=== PATIENT | female | born 1940 | race Caucasian/White ===

== ENCOUNTER 2018-04-19 15:43 | Inpatient (IN) | payer MEDICARE, OTHER ==
[2018-04-19 16:20] VITALS: BMI 24.3
[2018-04-19] MEDS ORDERED: ACETAMINOPHEN 1000 MG/100 ML VIAL (NON FORMULARY) IVPB ONE (16:43)
--- NOTE | 2018-04-19 16:54 | PDOC ---
History of Present Illness - General History Source: Patient, Correction Records, Old Records Exam Limitations: No Limitations - History of Present Illness Initial Comments: 04/19/18 17:36 The patient is a 77 year old female brought via EMS from [facility], with a significant past medical history of diabetes, dementia, AFIB, COPD , CHF, GERD, HTN, seizures, thyroid disease, depression and anxiety, who presents to the emergency department complaining of a low hemoglobin count, currently at 6.1. Upon evaluation the patient notes that she doesnt feel well and has chronic bilateral leg pain. She is also complaining of abdominal pain, which is generalized. She notes that the pain is exacerbated when her abdomen is palpated. She also notes that her leg pain is exacerbated when the legs are palpated. The patient denies chest pain, shortness of breath, headache or dizziness. Denies fever, chills, nausea, vomiting, diarrhea and constipation. Denies dysuria, frequency, urgency and hematuria. Allergies: None Past surgical history: None reported Social History: No alcohol, tobacco or drug use reported <Drew Payne - Last Filed: 04/19/18 17:35> <Shakira Tobin - Last Filed: 04/19/18 19:48> - General Chief Complaint: Blood Transfusion Stated Complaint: RULE OUT GI BLEED Time Seen by Provider: 04/19/18 16:37 Past History <Drew Payne - Last Filed: 04/19/18 17:35> - Past Medical History Cardiac Disorders: Yes (a fib) COPD: Yes CHF: Yes Diabetes: Yes GI Disorders: Yes (GERD) HTN: Yes Psychiatric Problems: Yes (anxiety,depression) Seizures: Yes Thyroid Disease: Yes - Suicide/Smoking/Psychosocial Hx Smoking History: Never smoked Have you smoked in the past 12 months: No Information on smoking cessation initiated: No Hx Alcohol Use: No Drug/Substance Use Hx: No Substance Use Type: None <Shakira Tobin - Last Filed: 04/19/18 19:48> - Past Medical History Allergies/Adverse Reactions: Allergies Allergy/AdvReac Type Severity Reaction Status Date / Time No Known Allergies Allergy Verified 04/19/18 16:18 Home Medications: Ambulatory Orders Albuterol 2.5/Ipratropium 0.5 [Duoneb -] 1 neb IH QID 09/19/16 Alprazolam [Xanax] 0.25 mg PO HS 09/19/16 Apixaban [Eliquis -] 5 mg PO BID 09/19/16 Citalopram Hydrobromide [Celexa -] 10 mg PO DAILY 09/19/16 Digoxin [Lanoxin -] 0.125 mg PO DAILY 09/19/16 Diltiazem Cd [Cardizem Cd -] 180 mg PO BID 09/19/16 Docusate Sodium [Colace -] 200 mg PO HS 09/19/16 Famotidine [Pepcid] 20 mg PO DAILY 09/19/16 Fluticasone/Salmeterol [Advair 250-50 Diskus] 1 each IH BID 09/19/16 Furosemide [Lasix -] 40 mg PO DAILY 09/19/16 Humalog Kwikpen U-100 7 unit SQ TID 09/19/16 Insulin Glargine,Hum.rec.anlog [Lantus Solostar PEN -] 20 units SQ HS 09/19/16 Insulin Lispro [Humalog Kwikpen U-100] 0 unit SQ QID 09/19/16 Lactobacillus Acidophilus [Acidophilus] 2 each PO TID 09/19/16 Methimazole [Tapazole] 2.5 mg PO DAILY 09/19/16 Metoprolol Succinate [Toprol XL -] 50 mg PO DAILY 09/19/16 Oxycodone HCl/Acetaminophen [Percocet 5-325 mg Tablet] 1 tab PO Q6H PRN Sennosides [Senna] 2 tab PO DAILY 09/19/16 Simethicone [Gas-X] 80 mg PO QID 09/19/16 Vit B Comp No.3/Folic/C/Biotin [Nephro-Joyce Rx Tablet] 1 each PO DAILY 09/19/16 Zolpidem Tartrate [Ambien] 5 mg PO HS PRN 09/19/16 levETIRAcetam [Keppra -] 250 mg PO BID 09/19/16 *Physical Exam - Vital Signs Last Vital Signs Temp Pulse Resp BP Pulse Ox 98.1 F 74 20 109/64 99 04/19/18 16:18 04/19/18 16:18 04/19/18 16:18 04/19/18 16:18 04/19/18 17:05 - Physical Exam Comments: 04/19/18 17:36 Constitutional: Awake, alert, oriented. No acute distress. Head: Normocephalic. Atraumatic Eyes: PERRL. EOMI. Conjunctivae are not pale. ENT: Mucous membranes are moist and intact. Posterior pharynx without exudates or erythema. Uvula midline. Neck: Supple. Full ROM. No lymphadenopathy. Cardiovascular: (+) Systolic ejection murmur, irregularly irregular. S1, S2 regular. Distal pulses are 2+ and symmetric. Pulmonary/Chest: No evidence of respiratory distress. Clear to auscultation bilaterally No wheezing, rales or rhonchi. Abdominal: Soft and non-distended. There is no tenderness. No rebound, guarding or rigidity. No organomegaly. No palpable masses. Good bowel sounds. Back: No CVA tenderness. Musculoskeletal: No edema. No cyanosis. No clubbing. Full range of motion in all extremities. Nocalf tenderness. Radial/pedal pulses are intact and 2+ bilaterally Skin: (+) Chronic venous stasis changes lower extremities bilaterally. Skin is warm and dry. No petechiae. No purpura. Neurological: Alert and oriented to person, place, and time. Cranial nerves II -XII are grossly intact. Normal speech. Strength is grossly symmetric. No sensory deficits. Psychiatric: Good eye contact. Normal interaction, affect and behavior. Rectal exam: (+) Black Tarry Stools <Drew Payne - Last Filed: 04/19/18 17:35> - Vital Signs Last Vital Signs Temp Pulse Resp BP Pulse Ox 98.1 F 74 20 109/64 100 04/19/18 16:18 04/19/18 16:18 04/19/18 16:18 04/19/18 16:18 04/19/18 16:18 <Shakira Tobin - Last Filed: 04/19/18 19:48> Heart Score/ECG Review - [place] Comment: 04/19/18 19:48 afib at 95, nl axis, t wave flattening, t wave inversions III, avf <Shakira Tobin - Last Filed: 04/19/18 19:48> ED Treatment Course - LABORATORY CBC & Chemistry Diagram: 04/19/18 17:10 04/19/18 17:10 - Medications Given in the ED: ED Medications Discontinued Medications Generic Name Dose Route Start Last Admin Trade Name Aaron PRN Reason Stop Dose Admin Acetaminophen 1,000 mg 04/19/18 16:43 04/19/18 17:25 Ofirmev Injection - IVPB 04/19/18 16:44 1,000 mg ONCE ONE Administration <Drew Payne - Last Filed: 04/19/18 17:35> - LABORATORY CBC & Chemistry Diagram: 04/19/18 17:10 04/19/18 18:15 - RADIOLOGY Radiology Studies Ordered: Category Date Time Status CHEST X-RAY PORTABLE* [RAD] Stat Radiology 04/19/18 16:41 Ordered <Shakira Tobin - Last Filed: 04/19/18 19:48> Medical Decision Making - Critical Care Time Total Critical Care Time (minutes): 30 Critical Care Statement: The care of this patient involved high complexity decision making to prevent further life threatening deterioration of the patient 's condition and/or to evaluate & treat vital organ system(s) failure or risk of failure. 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 Germain 04/19/18 17:24 black tarry stool on rectal exam 04/19/18 18:15 heme + stool concern for GI bleed on elaquis -will transfuse case discussed with SYMPHONY - covering Joshua gonzalez - who accepts pt to TELE inpt admission -seen in consult by Dr. Flores in the past will place GI consult <Shakira Tobin - Last Filed: 04/19/18 19:48> *DC/Admit/Observation/Transfer <Drew Payne - Last Filed: 04/19/18 17:35> - Discharge Dispostion Decision to Admit order: Yes - Attestations Physician Attestion: 04/19/18 18:16 I, Dr. Shakira Tobin, DO, attest that this document has been prepared under my direction and personally reviewed by me in its entirety. I further attest, that it accurately reflects all work, treatment, procedures and medical decision -making performed by me. <Shakira Tobin - Last Filed: 04/19/18 19:48> Diagnosis at time of Disposition: GI bleed, Symptomatic anemia - Discharge Dispostion Condition at time of disposition: Guarded
[2018-04-19] MEDS ORDERED: ACETAMINOPHEN INJECTION 100 ML IVPB ONE (17:20)
[2018-04-19] MEDS ORDERED: PANTOPRAZOLE SODIUM 40 MG VIAL IVPUSH ONE (17:23)
[2018-04-19 17:29] LABS: BASO % 0.4 % (0-2.0); EOS % 3.1 % (0-4.5); HEMATOCRIT 20.9 % (32.4-45.2); LYMPH % 12.7 % (8-40); MCH 29.7 pg (25.7-33.7); MCHC 32.2 g/dl (32.0-36.0); MEAN CELL VOLUME 92.3 fl (80-96); MEAN PLT VOLUME 6.4 fl (7.5-11.1); MONO % 12.8 % (3.8-10.2); PLATELET COUNT 432 K/MM3 (134-434); RBC 2.26 M/mm3 (3.60-5.2); RDW 14.9 % (11.6-15.6)
[2018-04-19 17:42] LABS: HEMOGLOBIN 6.7 GM/dL (10.7-15.3)
[2018-04-19 17:52] LABS: INR 1.42 (0.82-1.09); PROTHROMBIN TIME (PATIENT) 16.1 SEC (9.7-13.0)
[2018-04-19 17:56] LABS: ACTIVATED PTT 27.3 SECONDS (25.2-36.5)
[2018-04-19] MEDS ORDERED: SODIUM CHLORIDE 0.9% 1000 ML INFUS.BAG IV ONE (18:25)
[2018-04-19 18:56] LABS: ALBUMIN 2.8 g/dl (3.4-5.0); ANION GAP 6 (8-16); BLOOD UREA NITROGEN 34 mg/dL (7-18); CHLORIDE 97 mmol/L (98-107); CO2 33 mmol/L (21-32); GLUCOSE,RANDOM 108 mg/dL (74-106); LIPASE 92 U/L (73-393); MAGNESIUM 2.7 mg/dL (1.8-2.4); POTASSIUM 4.8 mmol/L (3.5-5.1); SODIUM 136 mmol/L (136-145)
[2018-04-19 19:03] LABS: ALK PHOS 51 U/L (45-117); BILIRUBIN,TOTAL 0.4 mg/dL (0.2-1.0); SGOT/AST 13 U/L (15-37); SGPT/ALT 18 U/L (12-78)
[2018-04-19] MEDS ORDERED: morphine CARPU-JECT 2 MG/1 ML DISP.SYRIN IVPUSH ONE (19:03)
[2018-04-19] MEDS ORDERED: MORPHINE SULFATE 2 MG/ML VIAL ONE (19:21)
[2018-04-19] MEDS ORDERED: PANTOPRAZOLE SODIUM 40 MG/100 ML BAG IVPB ONE (20:39)
[2018-04-19 20:47] LABS: URINE APPEARANCE TURBID; URINE BILIRUBIN NEGATIVE (<2.0 mg/dL); URINE COLOR YELLOW; URINE GLUCOSE (UA) NEGATIVE (NEGATIVE); URINE KETONE NEGATIVE (NEGATIVE); URINE NITRITE NEGATIVE (NEGATIVE); URINE PROTEIN NEGATIVE (NEGATIVE); URINE UROBILINOGEN NEGATIVE mg/dL (0.2-1.0)
[2018-04-19 20:53] LABS: URINE LEUK ESTERASE 3+ (NEGATIVE)
[2018-04-19 20:56] LABS: URINE BACTERIA RARE /hpf (NONE SEEN); URINE MUCUS RARE; YEAST RARE
[2018-04-19] MEDS ORDERED: METOPROLOL TARTRATE 5 MG/5 ML VIAL IVPUSH PRN (21:21)
--- NOTE | 2018-04-19 21:22 | HP ---
CHIEF COMPLAINT: low H/H PCP: Aaron Oswald HISTORY OF PRESENT ILLNESS: This is a 77 year old female with a past medical history significant for afib on eliquis who presented to the ED with low Hgb from her NH. Pt with chronic complaint of abdominal, back and leg pain. Denies any new complaints or issues. ER course was notable for: (1) Hgb 6.7 (2) stool guaiac positive Recent Travel: pt denies PAST MEDICAL HISTORY: Afib on eliquis, CHF, COPD, DM, thyroid, GERD, seizure d/o, dementia, L breast CA PAST SURGICAL HISTORY: cholecystectomy L breast Mastectomy Social History: Smoking: pt denies, quit in her 50s Alcohol: pt denies Drugs: pt denies Family History: unk Allergies No Known Allergies Allergy (Verified 04/19/18 16:18) HOME MEDICATIONS: 3 Medication Instructions Recorded Albuterol 2.5/Ipratropium 0.5 1 neb IH QID 09/19/16 [Duoneb -] Alprazolam [Xanax] 0.25 mg PO HS 09/19/16 Apixaban [Eliquis -] 5 mg PO BID 09/19/16 Citalopram Hydrobromide [Celexa -] 10 mg PO DAILY 09/19/16 Digoxin [Lanoxin -] 0.125 mg PO DAILY 09/19/16 Diltiazem Cd [Cardizem Cd -] 180 mg PO BID 09/19/16 Docusate Sodium [Colace -] 300 mg PO HS 09/19/16 Famotidine [Pepcid] 20 mg PO DAILY 09/19/16 Insulin Glargine,Hum.rec.anlog 5 units SQ HS 09/19/16 [Lantus Solostar PEN -] Lactobacillus Acidophilus 2 each PO TID 09/19/16 [Acidophilus] Methimazole [Tapazole] 2.5 mg PO DAILY 09/19/16 Sennosides [Senna] 2 tab PO DAILY 09/19/16 Simethicone [Gas-X] 80 mg PO QID PRN 09/19/16 Vit B Comp No.3/Folic/C/Biotin 1 each PO DAILY 09/19/16 [Nephro-Joyce Rx Tablet] levETIRAcetam [Keppra -] 250 mg PO BID 09/19/16 Anastrozole [Arimidex -] 1 mg PO DAILY 04/19/18 Ascorbate Calcium [Vitamin C] 500 mg PO DAILY 04/19/18 Atorvastatin Ca [Lipitor] 10 mg PO HS 04/19/18 Ferrous Sulfate 325 mg PO TID 04/19/18 Melatonin 5 mg PO HS 04/19/18 Metoprolol Tartrate 25 mg PO TID 04/19/18 Polyethylene Glycol 3350 [Miralax 17 gm PO DAILY 04/19/18 (For Bowel Prep) -] REVIEW OF SYSTEMS CONSTITUTIONAL: Absent: fever, chills, diaphoresis, generalized weakness, malaise, loss of appetite, weight change HEENT: Absent: rhinorrhea, nasal congestion, throat pain, throat swelling, difficulty swallowing, mouth swelling, ear pain, eye pain, visual changes CARDIOVASCULAR: Absent: chest pain, syncope, palpitations, irregular heart rate, lightheadedness , peripheral edema RESPIRATORY: Absent: cough, shortness of breath, dyspnea with exertion, orthopnea, wheezing, stridor, hemoptysis GASTROINTESTINAL: Present: abdominal pain Absent: abdominal distension, nausea, vomiting, diarrhea, constipation, melena, hematochezia GENITOURINARY: Absent: dysuria, frequency, urgency, hesitancy, hematuria, flank pain, genital pain MUSCULOSKELETAL: Present: Leg pain Absent: myalgia, arthralgia, joint swelling, back pain, neck pain SKIN: Absent: rash, itching, pallor HEMATOLOGIC/IMMUNOLOGIC: Absent: easy bleeding, easy bruising, lymphadenopathy, frequent infections ENDOCRINE: Absent: unexplained weight gain, unexplained weight loss, heat intolerance, cold intolerance NEUROLOGIC: Absent: headache, focal weakness or paresthesias, dizziness, unsteady gait, seizure, mental status changes, bladder or bowel incontinence PSYCHIATRIC: Absent: anxiety, depression, suicidal or homicidal ideation, hallucinations. PHYSICAL EXAMINATION Vital Signs - 24 hr 3 04/19/18 04/19/18 04/19/18 16:18 17:05 20:52 21:09 Temperature 98.1 F Pulse Rate 74 Pulse Rate [ 100 H Apical] Respiratory 20 18 Rate Blood Pressure 109/64 Blood Pressure 121/85 [Right Arm] O2 Sat by Pulse 100 99 99 100 Oximetry (%) GENERAL: Awake, alert, and fully oriented, in no acute distress. HEAD: Normal with no signs of trauma. EYES: Pupils equal, round and reactive to light, extraocular movements intact, sclera anicteric, conjunctiva pale. No lid lag. EARS, NOSE, THROAT: Ears normal, nares patent, oropharynx clear without exudates. Moist mucous membranes. NECK: Normal range of motion, supple without lymphadenopathy, JVD, or masses. LUNGS: Breath sounds equal, clear to auscultation bilaterally. No wheezes, and no crackles. No accessory muscle use. HEART: Regular rate and rhythm, normal S1 and S2 without rub or gallop. + murmur ABDOMEN: Soft, tender all quadrants on deep palpation, not distended, normoactive bowel sounds, no guarding, no rebound, no masses. No hepatomegaly or splenomegaly. MUSCULOSKELETAL: Normal range of motion at all joints. No bony deformities or tenderness. No CVA tenderness. UPPER EXTREMITIES: 2+ pulses, warm, well-perfused. No cyanosis. No clubbing. No peripheral edema. LOWER EXTREMITIES: 2+ pulses, warm, well-perfused. No calf tenderness. tr peripheral edema. chronic vascular changes b/l LE: darkened skin, hypertrophic, flaky skin NEUROLOGICAL: Cranial nerves II-XII intact. Normal speech. Normal gait. PSYCHIATRIC: Cooperative. Good eye contact. Appropriate mood and affect. SKIN: Warm, dry, normal turgor, no rashes or lesions noted, normal capillary refill. Laboratory Results - last 24 hr 3 04/19/18 04/19/18 04/19/18 17:10 17:10 17:10 WBC 6.0 RBC 2.26 L D Hgb 6.7 L* D Hct 20.9 L D MCV 92.3 MCH 29.7 MCHC 32.2 RDW 14.9 Plt Count 432 D MPV 6.4 L Absolute Neuts (auto) 4.2 Neutrophils % 71.0 D Lymphocytes % 12.7 D Monocytes % 12.8 H D Eosinophils % 3.1 D Basophils % 0.4 Nucleated RBC % 0 PT with INR 16.10 H INR 1.42 H PTT (Actin FS) 27.3 Sodium Potassium Chloride Carbon Dioxide Anion Gap BUN Creatinine Creat Clearance w eGFR Random Glucose Lactic Acid 0.7 Calcium Magnesium Total Bilirubin AST ALT Alkaline Phosphatase Creatine Kinase Troponin I B-Natriuretic Peptide Total Protein Albumin Lipase Urine Color Urine Appearance Urine pH Ur Specific [place] Urine Protein Urine Glucose (UA) Urine Ketones Urine Blood Urine Nitrite Urine Bilirubin Urine Urobilinogen Ur Leukocyte Esterase Urine WBC (Auto) Urine RBC (Auto) Urine Bacteria Urine Mucus Urine Yeast Stool Occult Blood Digoxin 1.94 Blood Type O POSITIVE Antibody Screen Negative Crossmatch See Detail 3 04/19/18 04/19/18 04/19/18 04/19/18 18:10 18:15 18:15 20:30 WBC RBC Hgb Hct MCV MCH MCHC RDW Plt Count MPV Absolute Neuts (auto) Neutrophils % Lymphocytes % Monocytes % Eosinophils % Basophils % Nucleated RBC % PT with INR INR PTT (Actin FS) Sodium 136 Potassium 4.8 Chloride 97 L Carbon Dioxide 33 H Anion Gap 6 L BUN 34 H Creatinine 1.0 Creat Clearance w eGFR 53.91 Random Glucose 108 H Lactic Acid Calcium 8.0 L Magnesium 2.7 H Total Bilirubin 0.4 D AST 13 L ALT 18 Alkaline Phosphatase 51 Creatine Kinase 19 L Troponin I < 0.02 B-Natriuretic Peptide 4069.18 H Total Protein 6.0 L Albumin 2.8 L Lipase 92 Urine Color Urine Appearance Urine pH Ur Specific [place] Urine Protein Urine Glucose (UA) Urine Ketones Urine Blood Urine Nitrite Urine Bilirubin Urine Urobilinogen Ur Leukocyte Esterase Urine WBC (Auto) Urine RBC (Auto) Urine Bacteria Urine Mucus Urine Yeast Stool Occult Blood Positive Positive Digoxin Blood Type Antibody Screen Crossmatch 3 Urine Color Yellow 04/19/18 18:20 Urine Appearance Turbid 04/19/18 18:20 Urine pH 5.0 (5.0-8.0) 04/19/18 18:20 Ur Specific [place] 1.011 (1.001-1.035) 04/19/18 18:20 Urine Protein Negative (NEGATIVE) 04/19/18 18:20 Urine Glucose (UA) Negative (NEGATIVE) 04/19/18 18:20 Urine Ketones Negative (NEGATIVE) 04/19/18 18:20 Urine Blood 1+ (NEGATIVE) H 04/19/18 18:20 Urine Nitrite Negative (NEGATIVE) 04/19/18 18:20 Urine Bilirubin Negative (<2.0 mg/dL) 04/19/18 18:20 Ur Leukocyte Esterase 3+ (NEGATIVE) H D 04/19/18 18:20 Urine WBC (Auto) 931 Urine RBC (Auto) 10 Urine Bacteria Rare /hpf (NONE SEEN) 04/19/18 18:20 Urine Mucus Rare 04/19/18 18:20 Urine Yeast Rare ECG Atrial fibrillation vent rate 79, QTC [address]/T wave abnormality prolonged QT Radiology Reports CXR portable Since 09/26/2016, again noted is a large heart with sclerotic unfolded aorta, weak inspiration and some congestive changes. There may be some atelectasis at the right base. The bones and soft tissues appear intact. Follow-up recommended. Reported By: Fadi Nye MD 04/19/18 3055 ASSESSMENT/PLAN: 77yF with PMH Afib on eliquis, CHF, COPD, DM, thyroid, GERD, seizure d/o, dementia, L breast CA presented to the ED from [facility] for low H/ H. GI bleed/anemia - 2uPRBC - GI consult - hold eliquis - protonix 40mg BID - NPO Afib - hold eliquis due to GI bleed - cardiology consult - po meds on hold due to GI bleed, metoprolol 5mg IVP q4h PRN for HR >100 - can add IV diltiazem if HR not responding to metoprolol HTN - po meds on hold - metoprolol 5mg IVP q4h PRN for SBP > 140 - can add IV diltiazem if BP not responding HLD - po meds on hold, resume lipitor when cleared for po UTI - ceftriaxone 1g HS - follow culture results COPD - cont duoneb and advair hyperthyroid - resume tapazole when cleared for po DVT PPX - AC contraindicated in active bleeding FEN - hold IVF, will be receiving volume with blood - bmp in am - npo Dispo: Pt currently requires further inpatient management of her emergent condition Hospitalist Screening - Colonoscopy Questionnaire Colonoscopy Questionnaire: Colonoscopy Questionnaire
[2018-04-19] MEDS: ALBUTEROL SO4 2.5/IPRATROPIUM 0.5 INH SOL 3 ML VIAL.NEB. NEB SCH (21:45)
[2018-04-19] MEDS ORDERED: INSULIN SLIDING SCALE (NOVOLOG) 1 VIAL SQ SCH (22:00)
[2018-04-19] MEDS: BUDESONIDE/FORMETEROL FUMARATE 80/4.5 mcg INHALER IH SCH (22:18)
[2018-04-19] MEDS ORDERED: cefTRIAXone SODIUM 1 GM VIAL ONE (22:53)
[2018-04-19] MEDS ORDERED: DEXTROSE 5%-WATER - 50 ML IVPB ONE (22:54)
[2018-04-19] MEDS: CEFTRIAXONE 1 GM in DEXTROSE 5%-WATER - 50 ML IVPB SCH (23:00)
[2018-04-20] MEDS ORDERED: morphine SULFATE 4 MG/ML VIAL IVPUSH ONE (03:53)
[2018-04-20 06:15] LABS: BASO % 0.6 % (0-2.0); EOS % 3.1 % (0-4.5); HEMATOCRIT 25.6 % (32.4-45.2); HEMOGLOBIN 8.3 GM/dL (10.7-15.3); LYMPH % 8.8 % (8-40); MCH 29.8 pg (25.7-33.7); MCHC 32.5 g/dl (32.0-36.0); MEAN CELL VOLUME 91.5 fl (80-96); MEAN PLT VOLUME 5.9 fl (7.5-11.1); NEUT % 77.5 % (42.8-82.8); PLATELET COUNT 365 K/MM3 (134-434); RBC 2.79 M/mm3 (3.60-5.2); RDW 14.7 % (11.6-15.6); WHITE BLOOD COUNT 6.5 K/mm3 (4.0-10.0)
[2018-04-20] MEDS: INSULIN SLIDING SCALE (NOVOLOG) 1 VIAL SQ SCH ×3 (06:18→18:28)
[2018-04-20 06:46] LABS: ANION GAP 3 (8-16); BLOOD UREA NITROGEN 31 mg/dL (7-18); CALCIUM 8.4 mg/dL (8.5-10.1); CHLORIDE 99 mmol/L (98-107); CO2 35 mmol/L (21-32); CREATININE 0.9 mg/dL (0.55-1.02); GLUCOSE,RANDOM 121 mg/dL (74-106); MAGNESIUM 2.8 mg/dL (1.8-2.4); SODIUM 137 mmol/L (136-145)
[2018-04-20] MEDS: ALBUTEROL SO4 2.5/IPRATROPIUM 0.5 INH SOL 3 ML VIAL.NEB. NEB SCH ×4 (07:44→20:21)
--- NOTE | 2018-04-20 09:48 | PN ---
Progress Note, Physician Chief Complaint: Pt lying in bed in no acute distress. Reports "it hurts everywhere". "Not feeling well", unable to further explain. Otherwise, denies any chest pain, sob , n/v/d - Current Medication List Current Medications: Active Medications Albuterol/Ipratropium (Duoneb -) 1 amp NEB RQID [facility] Last Admin: 04/20/18 07:44 Dose: 1 amp Budesonide/Formoterol Fumarate (Symbicort 80/4.5mcg -) 2 puff IH BID [facility] Last Admin: 04/19/18 22:18 Dose: 2 puff Ceftriaxone Sodium 1 gm/ (Dextrose) 50 mls @ 100 mls/hr IVPB HS [facility]; Protocol Last Admin: 04/19/18 23:00 Dose: 100 mls/hr Insulin Aspart (Novolog Vial Sliding Scale -) 1 vial SQ HS [facility]; Protocol Last Admin: 04/19/18 22:17 Dose: Not Given Insulin Aspart (Novolog Vial Sliding Scale -) 1 vial SQ TIDAC [facility]; Protocol Last Admin: 04/20/18 06:18 Dose: Not Given Metoprolol Tartrate (Lopressor Injection -) 5 mg IVPUSH Q4H PRN PRN Reason: HYPERTENSION Pantoprazole Sodium (Protonix Iv) 40 mg IVPUSH BID [facility] - Objective Vital Signs: Vital Signs Temperature 98.1 F 04/20/18 09:00 Pulse Rate 102 H 04/20/18 09:00 Respiratory Rate 22 04/20/18 09:00 Blood Pressure 144/77 04/20/18 09:00 O2 Sat by Pulse Oximetry (%) 100 04/20/18 09:00 Constitutional: Yes: Well Nourished, No Distress, Anxious Cardiovascular: Yes: Pulse Irregular, Murmur Respiratory: Yes: Regular, CTA Bilaterally, On Nasal O2. No: Accessory Muscle Use, SOB, Tachypnea, Wheezes Gastrointestinal: Yes: Normal Bowel Sounds, Soft, Abdomen, Obese, Melena. No: Distention, Tenderness Genitourinary: Yes: Incontinence Extremities: Yes: Other (b/l le hyperpigmentation) Edema: No Integumentary: Yes: Venous Stasis Changes (b/l LE's) Neurological: Yes: Alert, Oriented Psychiatric: Yes: Alert, Oriented Labs: CBC, BMP 04/20/18 05:30 04/20/18 05:30 INR, PTT INR 1.42 (0.82-1.09) H 04/19/18 17:10 Problem List - Problems (1) Acute blood loss anemia Assessment/Plan: acute on chronic, vitals stable secondary to possible gib hg/hct improved s/p 2units prbcs pt has chronic iron def anemia eliquis held heme-occult positive monitor h/h Code(s): D62 - ACUTE POSTHEMORRHAGIC ANEMIA (2) GI bleed Assessment/Plan: +melena at admission, heme-occult positive case discussed with GI, initially pt refused egd/colonoscopy however pt does not have full capacity to make medical decisions and therefore has a HCP Ze. I spoke with HCP and the pt, who now agrees for gi procedure to identify the source of bleeding. GI informed protonix bid clear liquids cardiology consult appreciated monitor Code(s): K92.2 - GASTROINTESTINAL HEMORRHAGE, UNSPECIFIED Qualifiers: GI bleed type/associated pathology: melena Qualified Code(s): K92.1 - Melena (3) UTI (urinary tract infection) Assessment/Plan: UA+, UC pending ceftriaxone 2/5 monitor Code(s): N39.0 - URINARY TRACT INFECTION, SITE NOT SPECIFIED Qualifiers: Urinary tract infection type: acute cystitis Hematuria presence: without hematuria Qualified Code(s): N30.00 - Acute cystitis without hematuria (4) Atrial fibrillation Assessment/Plan: chronic on eliquis/metoprolol/cardizem hold eliquis in the setting of acute gib chads(2) score 4: 8.5% risk of stroke without ac cardiology consult pending Code(s): I48.91 - UNSPECIFIED ATRIAL FIBRILLATION Qualifiers: Atrial fibrillation type: chronic Qualified Code(s): I48.2 - Chronic atrial fibrillation (5) CHF (congestive heart failure) Assessment/Plan: chronic, diastolic last echo 2015, preserved ef appear euvolemic cardiology consult pending Code(s): I50.9 - HEART FAILURE, UNSPECIFIED (6) Hyperthyroidism Assessment/Plan: tsh wnl continue tapazole Code(s): E05.90 - THYROTOXICOSIS, UNSP WITHOUT THYROTOXIC CRISIS OR STORM (7) Diabetes Assessment/Plan: chronic continue sliding scale levemir hs bgm will monitor Code(s): E11.9 - TYPE 2 DIABETES MELLITUS WITHOUT COMPLICATIONS Qualifiers: Diabetes mellitus type: type 2 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 mellitus management and budget analyst insulin use: with shelter use Diabetes mellitus complication status: with neurologic complications Diabetes mellitus complication detail: with polyneuropathy Qualified Code(s): E11.42 - Type 2 diabetes mellitus with diabetic polyneuropathy; Z79.4 - carry all driver (current) use of insulin (8) Anxiety Assessment/Plan: controlled xanax prn Code(s): F41.9 - ANXIETY DISORDER, UNSPECIFIED (9) HTN (hypertension) Assessment/Plan: controlled continue home meds cardiology following Code(s): I10 - ESSENTIAL (PRIMARY) HYPERTENSION Qualifiers: Hypertension type: essential hypertension Qualified Code(s): I10 - Essential (primary) hypertension (10) Hyperlipidemia Assessment/Plan: chronic continue statin Code(s): E78.5 - HYPERLIPIDEMIA, UNSPECIFIED (11) GERD (gastroesophageal reflux disease) Assessment/Plan: chronic protonix while in pt Code(s): K21.9 - GASTRO-ESOPHAGEAL REFLUX DISEASE WITHOUT ESOPHAGITIS (12) COPD (chronic obstructive pulmonary disease) Assessment/Plan: stable O2 prn duoneb Code(s): J44.9 - CHRONIC OBSTRUCTIVE PULMONARY DISEASE, UNSPECIFIED (13) History of seizure Assessment/Plan: chronic continue keppra seizure precautions Code(s): Z87.898 - PERSONAL HISTORY OF OTHER SPECIFIED CONDITIONS Assessment/Plan Discussed with HCP Ze and the pt at bedside regarding plan of care for pt. Pt and HCP agrees to EGD/colonoscopy. GI informed of pt's and HCP wishes to proceed with egd/colonoscopy. Risks and benefits of being on AC and not being on AC such as risk of bleeding/ risk of stroke 8.5% explained to HCP as well. HCP reports understanding.
[2018-04-20] MEDS ORDERED: PATIENT'S OWN MEDICATION (NON-FORMULARY) (Lactobacillus Acidophilus [Acidophilus] 1 EACH) PO SCH (10:00)
[2018-04-20] MEDS ORDERED: PANTOPRAZOLE SODIUM 40 MG VIAL IVPUSH SCH (10:00)
[2018-04-20] MEDS: CITALOPRAM HYDROBROMIDE 10 MG TABLET (FP) PO SCH ×2 (10:27→18:27)
[2018-04-20] MEDS: DIGOXIN 0.125 MG TABLET (FP) PO SCH ×2 (10:28→18:27)
[2018-04-20] MEDS: METHIMAZOLE 5 MG TABLET (FP) PO SCH ×2 (10:29→18:27)
[2018-04-20] MEDS: BUDESONIDE/FORMETEROL FUMARATE 80/4.5 mcg INHALER IH SCH ×2 (10:29→22:18)
[2018-04-20] MEDS: ACETAMINOPHEN 325 MG TABLET (FP) PO PRN ×2 (10:29→22:18)
--- NOTE | 2018-04-20 11:01 | CON.GI ---
Consult Consult Specialty:: GI: Dr. Jones covering for Dr. Cheney Referred by:: Dr. Benitez Reason for Consultation:: "GI Bleed" - History of Present Illness Chief Complaint: "Everything hurts" History of Present Illness: 77F admitted through [facility] ER from [place] for evaluation of anemia. In review of the [facility] system Ms. Rausch has a baseline anemia and it was found to be worse. It is unclear if this has ever been evaluated from a hematologic or GI standpoint. No overt bleeding has been described. She complains of constipation. She believes that she may have had a colonoscopy in the past but is uncertain. There is no family history of colorectal cancer. She received 1 U PRBC after which her Hgb was 8.3 from 6.7. She just finished a 2nd unit of PRBC. She states that everything hurts. 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 Cardio/Vascular: Yes: AFIB Pulmonary: Yes: COPD ...: No Heme/Onc: Yes: Anemia, Cancer (Breast) Endocrine: Yes: Diabetes Mellitus, Hyperthyroidism - Past Surgical History Past Surgical History: Yes: Cholecystectomy Additional Surgical History: "eye surgeries" - Alcohol/Substance Use Hx Alcohol Use: No History of Substance Use: reports: None - Smoking History Smoking history: Former smoker Have you smoked in the past 12 months: No - Social History Usual Living Arrangement: Intermediate ADL: Support Services [facility] of : [facility] History of Recent Travel: No Home Medications - Allergies Allergies/Adverse Reactions: Allergies Allergy/AdvReac Type Severity Reaction Status Date / Time No Known Allergies Allergy Verified 04/19/18 16:18 - Home Medications Home Medications: Ambulatory Orders Albuterol 2.5/Ipratropium 0.5 [Duoneb -] 1 neb IH QID 09/19/16 Alprazolam [Xanax] 0.25 mg PO HS 09/19/16 Apixaban [Eliquis -] 5 mg PO BID 09/19/16 Citalopram Hydrobromide [Celexa -] 10 mg PO DAILY 09/19/16 Digoxin [Lanoxin -] 0.125 mg PO DAILY 09/19/16 Diltiazem Cd [Cardizem Cd -] 180 mg PO BID 09/19/16 Docusate Sodium [Colace -] 300 mg PO HS 09/19/16 Famotidine [Pepcid] 20 mg PO DAILY 09/19/16 Insulin Glargine,Hum.rec.anlog [Lantus Solostar PEN -] 5 units SQ HS 09/19/16 Lactobacillus Acidophilus [Acidophilus] 2 each PO TID 09/19/16 Methimazole [Tapazole] 2.5 mg PO DAILY 09/19/16 Sennosides [Senna] 2 tab PO DAILY 09/19/16 Simethicone [Gas-X] 80 mg PO QID PRN 09/19/16 Vit B Comp No.3/Folic/C/Biotin [Nephro-Joyce Rx Tablet] 1 each PO DAILY 09/19/16 levETIRAcetam [Keppra -] 250 mg PO BID 09/19/16 Anastrozole [Arimidex -] 1 mg PO DAILY 04/19/18 Ascorbate Calcium [Vitamin C] 500 mg PO DAILY 04/19/18 Atorvastatin Ca [Lipitor] 10 mg PO HS 04/19/18 Ferrous Sulfate 325 mg PO TID 04/19/18 Melatonin 5 mg PO HS 04/19/18 Metoprolol Tartrate 25 mg PO TID 04/19/18 Polyethylene Glycol 3350 [Miralax (For Bowel Prep) -] 17 gm PO DAILY 04/19/18 Family Disease History - Family Disease History Other Family History: No family history of colorectal cancer or other GI malignancy Review of Systems - Review of Systems Constitutional: denies: Chills Cardiovascular: denies: Chest Pain Respiratory: reports: SOB Gastrointestinal: reports: Abdominal Pain, Constipation. denies: Melena, Rectal Bleeding Musculoskeletal: reports: Back Pain, Extremity Pain Physical Exam-GI Vital Signs: Vital Signs Temperature 98.1 F 04/20/18 09:00 Pulse Rate 102 H 04/20/18 09:00 Respiratory Rate 22 04/20/18 09:00 Blood Pressure 144/77 04/20/18 09:00 O2 Sat by Pulse Oximetry (%) 100 04/20/18 09:00 Constitutional: Yes: Other (Nervous after discussion of possible procedures) Eyes: No: Sclera Icterus Cardiovascular: Yes: Other (Regular rate, irregular rhythm) Respiratory: Yes: Diminished (At bases b/l with poor insp effort) Gastrointestinal Inspection: Yes: Scars (faint periumbilical scar). No: Distention ...Auscultate: Yes: Normoactive Bowel Sounds ...Palpate: No: Hepatomegaly, Splenomegaly, Tenderness ...Percussion: No: Tympanitic ...Rectal Exam: Yes: Other (No external lesions, copious had dark iron stained stool in rectal vault, guaiac positive. Manually disimpacted.) Edema: No (+ Chronic stasis b/l ) Labs: CBC, BMP 04/20/18 05:30 04/20/18 05:30 INR, PTT INR 1.42 (0.82-1.09) H 04/19/18 17:10 Problem List - Problems (1) Anemia Assessment/Plan: Discussed finding of anemia with Ms. Rausch as well as guaiac positive stool. I explained that to assess for source of GI blood loss, upper endoscopy and colonoscopy could be performed to exclude sources of bleeding such as PUD, bleeding blood vessels or cancer of the GI tract such as colon cancer. She stated that she does not want procedures performed. She is aware that she is on a blood thinner and that GI bleeding can be life threatening. Advise: Protonix 40mg PO daily Monitor H/H Goals of care need to be outlined with Ms. Rausch and PMD given that she does not want any interventions. Clears. If H/H stable advance Code(s): D64.9 - ANEMIA, UNSPECIFIED (2) Constipation Assessment/Plan: A rectal exam to exclude evolving rectal fecal impaction at the retirement intermittently could be useful MiraLax 17g twice daily Senokot 2 tabs nightly Recall as needed Code(s): K59.00 - CONSTIPATION, UNSPECIFIED
--- NOTE | 2018-04-20 11:53 | EKG ---
Test Reason : Blood Pressure : / mmHG Vent. Rate : 095 BPM Atrial Rate : 110 BPM P-R Int : 000 ms QRS Dur : 096 ms QT Int : 334 ms P-R-T Axes : 000 042 -81 degrees QTc Int : 419 ms ATRIAL FIBRILLATION WITH A COMPETING JUNCTIONAL PACEMAKER NONSPECIFIC ST AND T WAVE ABNORMALITY ABNORMAL ECG WHEN COMPARED WITH ECG OF 19-SEP-2016 09:34, NONSPECIFIC T WAVE ABNORMALITY HAS REPLACED INVERTED T WAVES IN LATERAL LEADS Confirmed by ALLI ELIZONDO, IQRA ([id number]) on 04/20/2018 11:53:44 AM Referred By: Confirmed By:IQRA CARSON MD
--- NOTE | 2018-04-20 13:21 | CON.CARD ---
Consult Consult Specialty:: Cardiology Referred by:: Michelle Guzman Reason for Consultation:: afib - History of Present Illness Chief Complaint: Anemia History of Present Illness: 77 year old female with a pmhx of dm, dementia, copd, chf, gerd, htn, seizure d /o, thyroid disease, and afib on apixaban [facility] with worsening anemia and Hgb 6.1. Patient with no new complaints. C/o chronic b/l leg pain and abdominal pain. No chest pain or palpitations. No sob but not active. Transfused and Hgb 8.3. No gross bleed but gauic positive as per GI. 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 Cardio/Vascular: Yes: AFIB Pulmonary: Yes: COPD ...: No Endocrine: Yes: Diabetes Mellitus, Hyperthyroidism - Past Surgical History Past Surgical History: Yes: Cholecystectomy Additional Surgical History: "eye surgeries" - Alcohol/Substance Use Hx Alcohol Use: No History of Substance Use: reports: None - Smoking History Smoking history: Former smoker Have you smoked in the past 12 months: No - Social History Usual Living Arrangement: Custodial ADL: Support Services History of Recent Travel: No Home Medications - Allergies Allergies/Adverse Reactions: Allergies Allergy/AdvReac Type Severity Reaction Status Date / Time No Known Allergies Allergy Verified 04/19/18 16:18 - Home Medications Home Medications: Ambulatory Orders Albuterol 2.5/Ipratropium 0.5 [Duoneb -] 1 neb IH QID 09/19/16 Alprazolam [Xanax] 0.25 mg PO HS 09/19/16 Apixaban [Eliquis -] 5 mg PO BID 09/19/16 Citalopram Hydrobromide [Celexa -] 10 mg PO DAILY 09/19/16 Digoxin [Lanoxin -] 0.125 mg PO DAILY 09/19/16 Diltiazem Cd [Cardizem Cd -] 180 mg PO BID 09/19/16 Docusate Sodium [Colace -] 300 mg PO HS 09/19/16 Famotidine [Pepcid] 20 mg PO DAILY 09/19/16 Insulin Glargine,Hum.rec.anlog [Lantus Solostar PEN -] 5 units SQ HS 09/19/16 Lactobacillus Acidophilus [Acidophilus] 2 each PO TID 09/19/16 Methimazole [Tapazole] 2.5 mg PO DAILY 09/19/16 Sennosides [Senna] 2 tab PO DAILY 09/19/16 Simethicone [Gas-X] 80 mg PO QID PRN 09/19/16 Vit B Comp No.3/Folic/C/Biotin [Nephro-Joyce Rx Tablet] 1 each PO DAILY 09/19/16 levETIRAcetam [Keppra -] 250 mg PO BID 09/19/16 Anastrozole [Arimidex -] 1 mg PO DAILY 04/19/18 Ascorbate Calcium [Vitamin C] 500 mg PO DAILY 04/19/18 Atorvastatin Ca [Lipitor] 10 mg PO HS 04/19/18 Ferrous Sulfate 325 mg PO TID 04/19/18 Melatonin 5 mg PO HS 04/19/18 Metoprolol Tartrate 25 mg PO TID 04/19/18 Polyethylene Glycol 3350 [Miralax (For Bowel Prep) -] 17 gm PO DAILY 04/19/18 Family Disease History - Family Disease History Other Family History: No family history of colorectal cancer or other GI malignancy Vital Signs: Vital Signs Temperature 98.1 F 04/20/18 09:00 Pulse Rate 102 H 04/20/18 09:00 Respiratory Rate 22 04/20/18 09:00 Blood Pressure 144/77 04/20/18 09:00 O2 Sat by Pulse Oximetry (%) 100 04/20/18 09:00 Constitutional: Yes: No Distress Neck: Yes: Supple Respiratory: Yes: Diminished (bases) Gastrointestinal: Yes: Soft Cardiovascular: Yes: Pulse Irregular. No: Regular Rate and Rhythm JVD: No Carotid Bruit: No PMI: Non-Displaced Heart Sounds: Yes: S1, S2 Murmur: Yes: Systolic Murmur (3/6 HSM upper sternal border) Extremities: Yes: Other (chronic b/l skin changes) Edema: No - Other Data Labs, Other Data: CBC, BMP 04/20/18 05:30 04/20/18 05:30 INR, PTT INR 1.42 (0.82-1.09) H 04/19/18 17:10 Troponin, BNP 04/19/18 04/19/18 04/19/18 17:10 18:15 18:15 Troponin I Cancelled < 0.02 B-Natriuretic Peptide 4069.18 H Troponin, BNP 04/19/18 04/19/18 04/19/18 17:10 18:15 18:15 Troponin I Cancelled < 0.02 B-Natriuretic Peptide 4069.18 H Imaging - Results Chest X-ray: Report Reviewed EKG: Image Reviewed Assessment/Plan 77 year old female with a pmhx of dm, dementia, copd, chf, gerd, htn, seizure d/ o, thyroid disease, and afib on [facility]ixaban [facility] with worsening anemia and Hgb 6.1. Patient with no new complaints. C/o chronic b/l leg pain and abdominal pain. No chest pain or palpitations. No sob but not active. Transfused and Hgb 8.3. No gross bleed but gauic positive as per GI. EKG: afib with VR 95bpm, nl axis, LVH with nonspecific T wave abnormalities 1) Afib -Chronic afib with elevated rates this morning (but nurses report she was upset this am) and rates now are relatively controlled. Would just restart her home meds: diltiazem Hold off on metoprolol to see response to diltiazem -Was on apixaban for AC. Came in with anemia Hgb 6.1 and +guaic stool. AC is on hold at this time. She has strong indication for AC for stroke prevention and discussed this with patient. Would hold AC as long as GI recommends to hold. If patient refuses any work up, than would be at increased bleeding risk for AC therapy. Please call back if needed
[2018-04-20] MEDS ORDERED: LACTOBACILLUS ACIDOPHILUS PO SCH (14:00)
--- NOTE | 2018-04-20 14:32 | PN ---
Progress Note (short form) - Note Progress Note: Asked by SABRINA Solano to comment on how long to hold A/C. I explained that giving recommendations regarding anticoagulation on GI bleed that has not been evaluated endoscopically is difficult, as there are no guidelines and the location / cause of the bleed has not been defined. I would monitor clinically , Keep on BID Protonix for 5 days followed by once daily. Risks/Benefits of continuing or stoppage of anticoagulation in setting of A. Fib with GI bleed that has not been evaluated should be discussed with patient and her HCP. Problem List - Problems (1) Anemia Code(s): D64.9 - ANEMIA, UNSPECIFIED (2) Constipation Code(s): K59.00 - CONSTIPATION, UNSPECIFIED
[2018-04-20 15:50] LABS: BASO % 0.6 % (0-2.0); EOS % 1.6 % (0-4.5); HEMATOCRIT 27.7 % (32.4-45.2); HEMOGLOBIN 9.2 GM/dL (10.7-15.3); LYMPH % 8.5 % (8-40); MCH 30.3 pg (25.7-33.7); MCHC 33.1 g/dl (32.0-36.0); MEAN CELL VOLUME 91.5 fl (80-96); MEAN PLT VOLUME 6.3 fl (7.5-11.1); MONO % 10.4 % (3.8-10.2); NEUT % 78.9 % (42.8-82.8); PLATELET COUNT 410 K/MM3 (134-434); RBC 3.02 M/mm3 (3.60-5.2); RDW 14.4 % (11.6-15.6); WHITE BLOOD COUNT 6.7 K/mm3 (4.0-10.0)
--- NOTE | 2018-04-20 17:59 | PN ---
Progress Note (short form) - Note Progress Note: Received call earlier from SABRINA Solano that Ms. Rausch had spoken to Ze, her [id number] / HCP and that they were both agreeable to having procedures performed. I called Ze Rausch, Ms. Rausch's zuqngig-vq-fwk/HCP and discussed potential plan for EGD/Colonoscopy to assess for potential source of GI bleeding. We discussed potential risks of the procedure like but not limited to bleeding, perforation requiring surgery to repair, infection and sedation medication effects all of which could be potentially life threatening. He was agreeable to the procedures. I then went back to the hospital after office hours and discussed things with Ms. Rausch. She remembered the previous conversation that she had with her [id number]. We reviewed the procedures (indications and risks as outlined above) and she was agreeable to the procedures. She is AAO x 3 on my evaluation and showed good insight into the procedures. She signed consent. Will plan for EGD tomorrow. it will be 48 hours off of eliquis at that time. If there is an obvious source of bleeding, then another discussion can be had regarding colonoscopy. I feel that given the significant fecal impaction i encountered today along with opiate analgesia use and iron therapy, bowel prepping will be duifficult and likely not achieved in one evening. Problem List - Problems (1) Anemia Code(s): D64.9 - ANEMIA, UNSPECIFIED (2) Constipation Code(s): K59.00 - CONSTIPATION, UNSPECIFIED
[2018-04-20] MEDS ORDERED: INSULIN (NOVOLOG) ASPART 100 UNITS/ML 10ML VIAL ONE (18:26)
[2018-04-20] MEDS: levETIRAcetam 250 MG TABLET (FP) PO SCH ×2 (18:27→22:17)
[2018-04-20] MEDS: POLYETHYLENE GLYCOL 3350 119 GM BTL PO SCH ×2 (18:29→22:15)
[2018-04-20] MEDS ORDERED: DEXTROSE 5%-WATER - 50 ML IVPB ONE (20:42)
[2018-04-20] MEDS ORDERED: cefTRIAXone SODIUM 1 GM VIAL ONE (20:42)
[2018-04-20] MEDS: METOPROLOL TARTRATE 25 MG TABLET (FP) PO SCH (22:14)
[2018-04-20] MEDS: SENNOSIDES 8.8 MG/5 ML BULK BOTTLE PO SCH (22:15)
[2018-04-20] MEDS: PANTOPRAZOLE 40 MG TABLET (FP) PO SCH (22:15)
[2018-04-20] MEDS: INSULIN (LEVEMIR) 100 UNITS/ML UNITS SQ SCH (22:15)
[2018-04-20] MEDS: oxyCODONE HCL 5 MG TABLET PO PRN (22:18)
[2018-04-20] MEDS: CEFTRIAXONE 1 GM in DEXTROSE 5%-WATER - 50 ML IVPB SCH (22:18)
[2018-04-21] MEDS ORDERED: DEXTROSE 5%-0.45% SALINE 1,000 ML IV SCH (00:01)
[2018-04-21] MEDS: INSULIN SLIDING SCALE (NOVOLOG) 1 VIAL SQ SCH ×3 (06:29→17:31)
[2018-04-21] MEDS: METOPROLOL TARTRATE 25 MG TABLET (FP) PO SCH ×3 (06:32→22:26)
[2018-04-21 06:38] LABS: INR 1.27 (0.82-1.09); PROTHROMBIN TIME (PATIENT) 14.3 SEC (9.7-13.0)
[2018-04-21 06:40] LABS: ACTIVATED PTT 26.1 SECONDS (25.2-36.5)
[2018-04-21 06:59] LABS: BASO % 0.6 % (0-2.0); EOS % 3.3 % (0-4.5); HEMATOCRIT 28.2 % (32.4-45.2); HEMOGLOBIN 9.5 GM/dL (10.7-15.3); LYMPH % 9.7 % (8-40); MCHC 33.8 g/dl (32.0-36.0); MEAN CELL VOLUME 91.7 fl (80-96); MEAN PLT VOLUME 6.2 fl (7.5-11.1); MONO % 11.5 % (3.8-10.2); NEUT % 74.9 % (42.8-82.8); PLATELET COUNT 364 K/MM3 (134-434); RBC 3.07 M/mm3 (3.60-5.2); RDW 14.6 % (11.6-15.6); WHITE BLOOD COUNT 6.1 K/mm3 (4.0-10.0)
[2018-04-21 07:02] LABS: CHLORIDE 99 mmol/L (98-107); POTASSIUM 4.8 mmol/L (3.5-5.1); SODIUM 138 mmol/L (136-145)
[2018-04-21 07:17] LABS: ANION GAP 8 (8-16); BLOOD UREA NITROGEN 28 mg/dL (7-18); CALCIUM 8.1 mg/dL (8.5-10.1); CO2 31 mmol/L (21-32); CREATININE 0.9 mg/dL (0.55-1.02); GLUCOSE,RANDOM 125 mg/dL (74-106); MAGNESIUM 2.6 mg/dL (1.8-2.4)
[2018-04-21] MEDS: ALBUTEROL SO4 2.5/IPRATROPIUM 0.5 INH SOL 3 ML VIAL.NEB. NEB SCH ×4 (07:39→20:59)
--- NOTE | 2018-04-21 09:42 | PN ---
Progress Note, Physician Chief Complaint: Pt lying in bed in no acute distress. says she is thirsty, aware of egd in afternoon. Otherwise, denies any chest pain, sob, n/v/d - Current Medication List Current Medications: Active Medications Acetaminophen (Tylenol -) 650 mg PO Q6H PRN PRN Reason: PAIN LEVEL 4 - 6 Last Admin: 04/20/18 22:18 Dose: 650 mg Albuterol/Ipratropium (Duoneb -) 1 amp NEB RQID [facility] Last Admin: 04/21/18 07:39 Dose: 1 amp Alprazolam (Xanax -) 0.25 mg PO HS PRN PRN Reason: ANXIETY Budesonide/Formoterol Fumarate (Symbicort 80/4.5mcg -) 2 puff IH BID [facility] Last Admin: 04/20/18 22:18 Dose: 2 puff Citalopram Hydrobromide (Celexa -) 10 mg PO DAILY [facility] Last Admin: 04/20/18 18:27 Dose: 10 mg Digoxin (Lanoxin -) 0.125 mg PO DAILY [facility] Last Admin: 04/20/18 18:27 Dose: 0.125 mg Diltiazem HCl (Cardizem Cd -) 180 mg PO BID [facility] Last Admin: 04/20/18 22:15 Dose: 180 mg Ceftriaxone Sodium 1 gm/ (Dextrose) 50 mls @ 100 mls/hr IVPB [facility]; Protocol Last Admin: 04/20/18 22:18 Dose: 100 mls/hr Dextrose/Sodium Chloride (D5-1/2ns -) 1,000 mls @ 75 mls/hr IV ASDIR [facility] Last Admin: 04/21/18 00:40 Dose: 75 mls/hr Insulin Aspart (Novolog Vial Sliding Scale -) 1 vial SQ TIDAC [facility]; Protocol Last Admin: 04/21/18 06:29 Dose: Not Given Insulin Detemir (Levemir Vial) 5 units SQ [facility] Last Admin: 04/20/18 22:15 Dose: Not Given Lactobacillus Acidophilus (Bacid -) 1 tab PO DAILY [facility] Levetiracetam (Keppra -) 250 mg PO BID [facility] Last Admin: 04/20/18 22:17 Dose: Not Given Methimazole (Tapazole -) 2.5 mg PO DAILY [facility] Last Admin: 04/20/18 18:27 Dose: 2.5 mg Metoprolol Tartrate (Lopressor -) 25 mg PO TID [facility] Last Admin: 04/21/18 06:33 Dose: 25 mg Mineral Oil (Fleet Mineral Oil Rectal Enema -) 133 ml [place] DAILY [facility] Stop: 04/23/18 10:01 Oxycodone HCl (Roxicodone -) 2.5 mg PO Q6H PRN PRN Reason: PAIN LEVEL 6-10 Last Admin: 04/20/18 22:18 Dose: 2.5 mg Pantoprazole Sodium (Protonix -) 40 mg PO BID [facility] Last Admin: 04/20/18 22:15 Dose: 40 mg Polyethylene Glycol (Miralax (For Daily Use) -) 17 gm PO BID [facility] Last Admin: 04/20/18 22:15 Dose: Not Given Senna (Senna Oral Solution -) 8.8 mg PO HS [facility] Last Admin: 04/20/18 22:15 Dose: 8.8 mg - Objective Vital Signs: Vital Signs Temperature 97.3 F L 04/21/18 05:52 Pulse Rate 90 04/21/18 05:52 Respiratory Rate 20 04/21/18 05:52 Blood Pressure 121/64 04/21/18 05:52 O2 Sat by Pulse Oximetry (%) 99 04/20/18 21:00 Constitutional: Yes: Well Nourished, No Distress, Calm Cardiovascular: Yes: Pulse Irregular, Murmur. No: Gallop, Rub Respiratory: Yes: WNL, Regular, CTA Bilaterally. No: Accessory Muscle Use, SOB , Tachypnea, Wheezes Gastrointestinal: Yes: Normal Bowel Sounds, Soft, Abdomen, Obese. No: Distention, Tenderness, Vomiting Genitourinary: Yes: Incontinence Edema: No Integumentary: Yes: Venous Stasis Changes (b/l lower extremities) Neurological: Yes: WNL, Alert, Oriented Psychiatric: Yes: WNL, Alert, Oriented Labs: CBC, BMP 04/21/18 05:30 04/21/18 05:30 INR, PTT INR 1.27 (0.82-1.09) H 04/21/18 05:30 Problem List - Problems (1) Acute blood loss anemia Code(s): D62 - ACUTE POSTHEMORRHAGIC ANEMIA (2) GI bleed Code(s): K92.2 - GASTROINTESTINAL HEMORRHAGE, UNSPECIFIED Qualifiers: GI bleed type/associated pathology: melena Qualified Code(s): K92.1 - Melena (3) UTI (urinary tract infection) Code(s): N39.0 - URINARY TRACT INFECTION, SITE NOT SPECIFIED Qualifiers: Urinary tract infection type: acute cystitis Hematuria presence: without hematuria Qualified Code(s): N30.00 - Acute cystitis without hematuria (4) Atrial fibrillation Code(s): I48.91 - UNSPECIFIED ATRIAL FIBRILLATION Qualifiers: Atrial fibrillation type: chronic Qualified Code(s): I48.2 - Chronic atrial fibrillation (5) CHF (congestive heart failure) Code(s): I50.9 - HEART FAILURE, UNSPECIFIED (6) Hyperthyroidism Code(s): E05.90 - THYROTOXICOSIS, UNSP WITHOUT THYROTOXIC CRISIS OR STORM (7) Diabetes Code(s): E11.9 - TYPE 2 DIABETES MELLITUS WITHOUT COMPLICATIONS Qualifiers: Diabetes mellitus type: type 2 Diabetes mellitus oil heaterman insulin use: with oil heaterman use Diabetes mellitus complication status: with neurologic complications Diabetes mellitus complication detail: with polyneuropathy Qualified Code(s): E11.42 - Type 2 diabetes mellitus with diabetic polyneuropathy; Z79.4 - detention (current) use of insulin (8) Anxiety Code(s): F41.9 - ANXIETY DISORDER, UNSPECIFIED (9) HTN (hypertension) Code(s): I10 - ESSENTIAL (PRIMARY) HYPERTENSION Qualifiers: Hypertension type: essential hypertension Qualified Code(s): I10 - Essential (primary) hypertension (10) Hyperlipidemia Code(s): E78.5 - HYPERLIPIDEMIA, UNSPECIFIED (11) GERD (gastroesophageal reflux disease) Code(s): K21.9 - GASTRO-ESOPHAGEAL REFLUX DISEASE WITHOUT ESOPHAGITIS (12) COPD (chronic obstructive pulmonary disease) Code(s): J44.9 - CHRONIC OBSTRUCTIVE PULMONARY DISEASE, UNSPECIFIED (13) History of seizure Code(s): Z87.898 - PERSONAL HISTORY OF OTHER SPECIFIED CONDITIONS (14) Fecal impaction Code(s): K56.41 - FECAL IMPACTION Assessment/Plan (1) Acute blood loss anemia Assessment/Plan: acute on chronic h/h stable s/p 2units prbcs eliquis held monitor h/h Code(s): D62 - ACUTE POSTHEMORRHAGIC ANEMIA (2) GI bleed Assessment/Plan: suspect UGIB EGD today plan for Colonoscopy on Tuesday protonix bid cardiology consult appreciated GI following Code(s): K92.2 - GASTROINTESTINAL HEMORRHAGE, UNSPECIFIED Qualifiers: GI bleed type/associated pathology: melena Qualified Code(s): K92.1 - Melena (3) UTI (urinary tract infection) Assessment/Plan: UA+, UC pending ceftriaxone 3/ monitor Code(s): N39.0 - URINARY TRACT INFECTION, SITE NOT SPECIFIED Qualifiers: Urinary tract infection type: acute cystitis Hematuria presence: without hematuria Qualified Code(s): N30.00 - Acute cystitis without hematuria (4) Fecal impaction Assessment/Plan: disimpacted by GI miralax/senna Code(s): K56.41 - FECAL IMPACTION (5) Atrial fibrillation Assessment/Plan: chronic on eliquis/metoprolol/cardizem hold eliquis in the setting of acute gib chads(2) score 4: 8.5% risk of stroke without ac cardiology following Code(s): I48.91 - UNSPECIFIED ATRIAL FIBRILLATION Qualifiers: Atrial fibrillation type: chronic Qualified Code(s): I48.2 - Chronic atrial fibrillation (6) CHF (congestive heart failure) Assessment/Plan: chronic, diastolic last echo 2015, preserved ef appear euvolemic cardiology following Code(s): I50.9 - HEART FAILURE, UNSPECIFIED (7) Hyperthyroidism Assessment/Plan: tsh wnl continue tapazole Code(s): E05.90 - THYROTOXICOSIS, UNSP WITHOUT THYROTOXIC CRISIS OR STORM (8) Diabetes Assessment/Plan: chronic continue sliding scale levemir hs bgm will monitor Code(s): E11.9 - TYPE 2 DIABETES MELLITUS WITHOUT COMPLICATIONS Qualifiers: Diabetes mellitus type: type 2 Diabetes mellitus correction insulin use: with correction use Diabetes mellitus complication status: with neurologic complications Diabetes mellitus complication detail: with polyneuropathy Qualified Code(s): E11.42 - Type 2 diabetes mellitus with diabetic polyneuropathy; Z79.4 - oil heaterman (current) use of insulin (9) Anxiety Assessment/Plan: controlled xanax prn Code(s): F41.9 - ANXIETY DISORDER, UNSPECIFIED (10) HTN (hypertension) Assessment/Plan: controlled continue home meds cardiology following Code(s): I10 - ESSENTIAL (PRIMARY) HYPERTENSION Qualifiers: Hypertension type: essential hypertension Qualified Code(s): I10 - Essential (primary) hypertension (11) Hyperlipidemia Assessment/Plan: chronic continue statin Code(s): E78.5 - HYPERLIPIDEMIA, UNSPECIFIED (12) GERD (gastroesophageal reflux disease) Assessment/Plan: chronic protonix Code(s): K21.9 - GASTRO-ESOPHAGEAL REFLUX DISEASE WITHOUT ESOPHAGITIS (13) COPD (chronic obstructive pulmonary disease) Assessment/Plan: stable O2 prn duoneb Code(s): J44.9 - CHRONIC OBSTRUCTIVE PULMONARY DISEASE, UNSPECIFIED (14) History of seizure Assessment/Plan: chronic continue keppra seizure precautions Code(s): Z87.898 - PERSONAL HISTORY OF OTHER SPECIFIED CONDITIONS Assessment/Plan Plan for EGD today by GI. Colonoscopy Tuesday
[2018-04-21] MEDS: CITALOPRAM HYDROBROMIDE 10 MG TABLET (FP) PO SCH (10:44)
[2018-04-21] MEDS: LACTOBACILLUS ACIDOPHILUS 1 TABLET PO SCH (10:44)
[2018-04-21] MEDS: MINERAL OIL ENEMA 133 ML ENEMA PR SCH (10:46)
[2018-04-21] MEDS: DIGOXIN 0.125 MG TABLET (FP) PO SCH (10:47)
[2018-04-21] MEDS: levETIRAcetam 250 MG TABLET (FP) PO SCH ×2 (10:47→22:26)
[2018-04-21] MEDS: PANTOPRAZOLE 40 MG TABLET (FP) PO SCH (10:48)
[2018-04-21] MEDS: BUDESONIDE/FORMETEROL FUMARATE 80/4.5 mcg INHALER IH SCH ×2 (10:48→23:00)
[2018-04-21] MEDS: POLYETHYLENE GLYCOL 3350 119 GM BTL PO SCH ×2 (10:48→22:50)
[2018-04-21] MEDS: METHIMAZOLE 5 MG TABLET (FP) PO SCH (10:48)
[2018-04-21] MEDS: ACETAMINOPHEN 325 MG TABLET (FP) PO PRN ×2 (10:55→18:02)
[2018-04-21] MEDS: oxyCODONE HCL 5 MG TABLET PO PRN ×2 (10:55→22:26)
--- NOTE | 2018-04-21 16:58 | PN ---
Progress Note (short form) - Note Progress Note: EGD complete. Report left in physical chart and to be scanned into [employer] Problem List - Problems (1) Anemia Code(s): D64.9 - ANEMIA, UNSPECIFIED (2) Constipation Code(s): K59.00 - CONSTIPATION, UNSPECIFIED
[2018-04-21] MEDS ORDERED: PT OWN MED DRAWER 7, Y5N ONE (21:04)
[2018-04-21] MEDS ORDERED: INSULIN (NOVOLOG) ASPART 100 UNITS/ML 10ML VIAL ONE (21:04)
[2018-04-21] MEDS ORDERED: cefTRIAXone SODIUM 1 GM VIAL ONE (21:04)
[2018-04-21] MEDS ORDERED: DEXTROSE 5%-WATER - 50 ML IVPB ONE (21:05)
[2018-04-21] MEDS: INSULIN (LEVEMIR) 100 UNITS/ML UNITS SQ SCH (22:26)
[2018-04-21] MEDS: ALPRAZolam 0.25 MG TABLET PO PRN (22:26)
[2018-04-21] MEDS: CEFTRIAXONE 1 GM in DEXTROSE 5%-WATER - 50 ML IVPB SCH (22:29)
[2018-04-21] MEDS: SENNOSIDES 8.8 MG/5 ML BULK BOTTLE PO SCH (22:29)
[2018-04-22] MEDS: METOPROLOL TARTRATE 25 MG TABLET (FP) PO SCH ×2 (06:57→13:28)
[2018-04-22] MEDS: INSULIN SLIDING SCALE (NOVOLOG) 1 VIAL SQ SCH ×3 (07:01→16:30)
[2018-04-22] MEDS: ALBUTEROL SO4 2.5/IPRATROPIUM 0.5 INH SOL 3 ML VIAL.NEB. NEB SCH ×4 (07:40→19:51)
[2018-04-22 08:24] LABS: BASO % 0.6 % (0-2.0); EOS % 2.8 % (0-4.5); HEMATOCRIT 29.5 % (32.4-45.2); HEMOGLOBIN 9.7 GM/dL (10.7-15.3); LYMPH % 7.2 % (8-40); MCH 30.5 pg (25.7-33.7); MEAN CELL VOLUME 92.5 fl (80-96); MEAN PLT VOLUME 6.2 fl (7.5-11.1); MONO % 12.2 % (3.8-10.2); NEUT % 77.2 % (42.8-82.8); PLATELET COUNT 360 K/MM3 (134-434); RBC 3.19 M/mm3 (3.60-5.2); RDW 15.1 % (11.6-15.6); WHITE BLOOD COUNT 6.1 K/mm3 (4.0-10.0)
[2018-04-22 09:07] LABS: ANION GAP 6 (8-16); BLOOD UREA NITROGEN 28 mg/dL (7-18); CALCIUM 8.4 mg/dL (8.5-10.1); CHLORIDE 99 mmol/L (98-107); CO2 33 mmol/L (21-32); CREATININE 0.9 mg/dL (0.55-1.02); GLUCOSE,RANDOM 102 mg/dL (74-106); POTASSIUM 4.9 mmol/L (3.5-5.1); SODIUM 138 mmol/L (136-145)
[2018-04-22] MEDS: LACTOBACILLUS ACIDOPHILUS 1 TABLET PO SCH (10:08)
[2018-04-22] MEDS: DIGOXIN 0.125 MG TABLET (FP) PO SCH (10:08)
[2018-04-22] MEDS: PANTOPRAZOLE 40 MG TABLET (FP) PO SCH (10:10)
[2018-04-22] MEDS: levETIRAcetam 250 MG TABLET (FP) PO SCH ×2 (10:10→21:52)
[2018-04-22] MEDS: METHIMAZOLE 5 MG TABLET (FP) PO SCH (10:11)
[2018-04-22] MEDS: oxyCODONE HCL 5 MG TABLET PO PRN ×2 (10:12→21:51)
[2018-04-22] MEDS: POLYETHYLENE GLYCOL 3350 119 GM BTL PO SCH (10:23)
[2018-04-22] MEDS: CITALOPRAM HYDROBROMIDE 10 MG TABLET (FP) PO SCH (10:23)
[2018-04-22] MEDS ORDERED: PT OWN MED DRAWER 7, Y5N ONE (10:34)
[2018-04-22] MEDS: MINERAL OIL ENEMA 133 ML ENEMA PR SCH (13:18)
[2018-04-22] MEDS: ACETAMINOPHEN 325 MG TABLET (FP) PO PRN ×2 (13:30→21:50)
--- NOTE | 2018-04-22 16:26 | PN ---
Physical Exam: SUBJECTIVE: Patient seen and examined. She has no complaints. She denies nausea , vomiting, rectal bleeding. She has not had BM today. OBJECTIVE: Vital Signs Period Temp Pulse Resp BP Sys/Perez Pulse Ox Last 24 Hr 97.7 F-98.6 F 63-90 16-20 87-118/51-78 97-100 GENERAL: The patient is awake, alert, and fully oriented, in no acute distress. LUNGS: Breath sounds equal, clear to auscultation bilaterally, no wheezes, no crackles, no accessory muscle use. HEART: Irregularly irregular. ABDOMEN: Soft, nontender, nondistended, normoactive bowel sounds, no guarding, no rebound, no hepatosplenomegaly, no masses. EXTREMITIES: Feet cool. Chronic changes bilateral legs. Laboratory Results - last 24 hr 04/21/18 04/21/18 04/22/18 17:28 22:25 06:30 WBC 6.1 RBC 3.19 L Hgb 9.7 L Hct 29.5 L MCV 92.5 MCH 30.5 MCHC 33.0 RDW 15.1 Plt Count 360 MPV 6.2 L Absolute Neuts (auto) 4.7 Neutrophils % 77.2 Lymphocytes % 7.2 L D Monocytes % 12.2 H Eosinophils % 2.8 Basophils % 0.6 Nucleated RBC % 0 Sodium Potassium Chloride Carbon Dioxide Anion Gap BUN Creatinine Creat Clearance w eGFR POC Glucometer 116 183 Random Glucose Calcium 04/22/18 04/22/18 06:30 07:00 WBC RBC Hgb Hct MCV MCH MCHC RDW Plt Count MPV Absolute Neuts (auto) Neutrophils % Lymphocytes % Monocytes % Eosinophils % Basophils % Nucleated RBC % Sodium 138 Potassium 4.9 Chloride 99 Carbon Dioxide 33 H Anion Gap 6 L BUN 28 H Creatinine 0.9 Creat Clearance w eGFR > 60 POC Glucometer 104 Random Glucose 102 Calcium 8.4 L Active Medications Generic Name Dose Route Start Last Admin Trade Name Freq PRN Reason Stop Dose Admin Acetaminophen 650 mg 04/20/18 10:16 04/22/18 13:30 Tylenol - PO 650 mg Q6H PRN Administration PAIN LEVEL 4 - 6 Albuterol/Ipratropium 1 amp 04/19/18 21:30 04/22/18 11:50 Duoneb - NEB 1 amp RQID REBECCA Administration Alprazolam 0.25 mg 04/20/18 09:53 04/21/18 22:26 Xanax - PO 0.25 mg HS PRN Administration ANXIETY Budesonide/Formoterol Fumarate 2 puff 04/19/18 22:00 04/21/18 23:00 Symbicort 80/4.5mcg - IH Not Given BID REBECCA Citalopram Hydrobromide 10 mg 04/20/18 10:30 04/22/18 10:23 Celexa - PO 10 mg DAILY REBECCA Administration Digoxin 0.125 mg 04/20/18 10:30 04/22/18 10:08 Lanoxin - PO 0.125 mg DAILY REBECCA Administration Diltiazem HCl 180 mg 04/20/18 22:00 04/22/18 10:11 Cardizem Cd - PO 180 mg BID REBECCA Administration Ceftriaxone Sodium 1 gm/ 50 mls @ 100 mls/hr 04/19/18 22:45 04/21/18 22:29 Dextrose IVPB 04/24/18 22:44 100 mls/hr HS REBECCA Administration Protocol Insulin Aspart 1 vial 04/20/18 07:00 04/22/18 07:01 Novolog Vial Sliding Scale - SQ Not Given TIDAC [facility] Protocol Insulin Detemir 5 units 04/20/18 22:00 04/21/18 22:26 Levemir Vial SQ 5 units HS [facility] Administration Lactobacillus Acidophilus 1 tab 04/20/18 10:32 04/22/18 10:08 Bacid - PO 1 tab DAILY REBECCA Administration Levetiracetam 250 mg 04/20/18 10:00 04/22/18 10:10 Keppra - PO 250 mg BID REBECCA Administration Methimazole 2.5 mg 04/20/18 10:00 04/22/18 10:11 Tapazole - PO 2.5 mg DAILY REBECCA Administration Metoprolol Tartrate 25 mg 04/20/18 14:00 04/22/18 13:28 Lopressor - PO 25 mg TID REBECCA Administration Mineral Oil 133 ml 04/21/18 10:00 04/22/18 13:18 Fleet Mineral Oil Rectal Enema - MO 04/23/18 10:01 Not Given DAILY REBECCA Oxycodone HCl 2.5 mg 04/20/18 10:18 04/22/18 10:12 Roxicodone - PO 2.5 mg Q6H PRN Administration PAIN LEVEL 6-10 Pantoprazole Sodium 40 mg 04/22/18 10:00 04/22/18 10:10 Protonix - PO 40 mg DAILY REBECCA Administration Polyethylene Glycol 17 gm 04/20/18 11:15 04/22/18 10:23 Miralax (For Daily Use) - PO 17 gm BID REBECCA Administration Senna 8.8 mg 04/20/18 22:00 04/21/18 22:29 Senna Oral Solution - PO 8.8 mg HS REBECCA Administration ASSESSMENT/PLAN: 1. Acute GI blood loss anemia - Transfused 2 units PRBCs - Hemoglobin stable - Eliquis held - EGD revealed distal esophageal spasm, two small non-bleeding prepyloric ulcers - Patient refusing colonoscopy - Continue Protonix - Continue to monitor hemoglobin and for signs of bleeding 2. UTI - Urine culture growing yeast-like organism - Discontinue Rocephin 3. Constipation with fecal impaction - s/p manual disimpaction - Continue Miralax, Senna, mineral oil enemas 4. Atrial fibrillation, permanent - Continue Lopressor, Cardizem CD, Digoxin - Eliquis held secondary to GI bleed 5 Chronic diastolic heart failure - Stable 6. Hyperthyroidism - Continue Tapazole 7. Type 2 DM - Continue Levemir, Novolog sliding scale 8. Anxiety - Continue Xanax as needed 9. HTN - Continue Lopressor, Cardizem CD 10. Hyperlipidemia 11. GERD - Continue Protonix 12. COPD - Stable - Continue Symbicort, DuoNeb as needed 13. Seizure disorder - Continue Keppra Visit type - Emergency Visit Emergency Visit: Yes ED Registration Date: 04/19/18 Care time: The patient presented to the Emergency Department on the above date and was hospitalized for further evaluation of their emergent condition. - New Patient This patient is new to me today: Yes Date on this admission: 04/22/18 - Critical Care Critical Care patient: No - Discharge Referral Referred to [facility] No
--- NOTE | 2018-04-22 17:19 | PN ---
Progress Note (short form) - Note Progress Note: Called by nurse. Sigifredo Miracle. She agrees to colonoscopy. Clear liquids and bowel prep tomorrow. Problem List - Problems (1) Anemia Code(s): D64.9 - ANEMIA, UNSPECIFIED (2) Constipation Code(s): K59.00 - CONSTIPATION, UNSPECIFIED
[2018-04-22] MEDS ORDERED: MAGNESIUM CITRATE 300 ML BOTTLE PO ONE (17:30)
[2018-04-22] MEDS: BUDESONIDE/FORMETEROL FUMARATE 80/4.5 mcg INHALER IH SCH ×2 (17:42→21:52)
[2018-04-22] MEDS: INSULIN (LEVEMIR) 100 UNITS/ML UNITS SQ SCH (21:54)
[2018-04-23] MEDS: INSULIN SLIDING SCALE (NOVOLOG) 1 VIAL SQ SCH ×3 (06:26→16:26)
[2018-04-23] MEDS: ALBUTEROL SO4 2.5/IPRATROPIUM 0.5 INH SOL 3 ML VIAL.NEB. NEB SCH ×4 (07:40→20:13)
--- NOTE | 2018-04-23 11:30 | PN ---
Physical Exam: SUBJECTIVE: Patient seen and examined. She has no complaints. She now agrees to colonoscopy tomorrow. OBJECTIVE: Vital Signs Period Temp Pulse Resp BP Sys/Perez Pulse Ox Last 24 Hr 98 F-98.9 F 80-92 16-20 110-134/64-80 98 GENERAL: The patient is awake, alert, and fully oriented, in no acute distress. LUNGS: Breath sounds equal, clear to auscultation bilaterally, no wheezes, no crackles, no accessory muscle use. HEART: Irregularly irregular. ABDOMEN: Soft, nontender, nondistended, normoactive bowel sounds, no guarding, no rebound, no hepatosplenomegaly, no masses. EXTREMITIES: Feet cool. Chronic changes bilateral legs. Laboratory Results - last 24 hr 04/19/18 04/22/18 04/22/18 17:10 16:01 21:55 POC Glucometer 117 163 Blood Type O POSITIVE Antibody Screen Negative Crossmatch See Detail 04/23/18 06:25 POC Glucometer 135 Blood Type Antibody Screen Crossmatch Active Medications Generic Name Dose Route Start Last Admin Trade Name Freq PRN Reason Stop Dose Admin Acetaminophen 650 mg 04/20/18 10:16 04/22/18 21:50 Tylenol - PO 650 mg Q6H PRN Administration PAIN LEVEL 4 - 6 Albuterol/Ipratropium 1 amp 04/19/18 21:30 04/23/18 07:40 Duoneb - NEB 1 amp RQID REBECCA Administration Alprazolam 0.25 mg 04/20/18 09:53 04/21/18 22:26 Xanax - PO 0.25 mg HS PRN Administration ANXIETY Bisacodyl 20 mg 04/23/18 12:00 Dulcolax - PO 04/23/18 12:01 ONCE ONE Budesonide/Formoterol Fumarate 2 puff 04/19/18 22:00 04/22/18 21:52 Symbicort 80/4.5mcg - IH 2 puff BID REBECCA Administration Citalopram Hydrobromide 10 mg 04/20/18 10:30 04/22/18 10:23 Celexa - PO 10 mg DAILY REBECCA Administration Digoxin 0.125 mg 04/20/18 10:30 04/22/18 10:08 Lanoxin - PO 0.125 mg DAILY REBECCA Administration Diltiazem HCl 180 mg 04/20/18 22:00 04/22/18 21:52 Cardizem Cd - PO 180 mg BID REBECCA Administration Insulin Aspart 1 vial 04/20/18 07:00 04/23/18 06:26 Novolog Vial Sliding Scale - SQ Not Given TIDAC [facility] Protocol Insulin Detemir 5 units 04/20/18 22:00 04/22/18 21:54 Levemir Vial SQ 5 units HS REBECCA Administration Lactobacillus Acidophilus 1 tab 04/20/18 10:32 04/22/18 10:08 Bacid - PO 1 tab DAILY REBECCA Administration Levetiracetam 250 mg 04/20/18 10:00 04/22/18 21:52 Keppra - PO 250 mg BID REBECCA Administration Methimazole 2.5 mg 04/20/18 10:00 04/22/18 10:11 Tapazole - PO 2.5 mg DAILY REBECCA Administration Metoprolol Tartrate 25 mg 04/20/18 14:00 04/22/18 13:28 Lopressor - PO 25 mg TID REBECCA Administration Pantoprazole Sodium 40 mg 04/22/18 10:00 04/22/18 10:10 Protonix - PO 40 mg DAILY REBECCA Administration ASSESSMENT/PLAN: 1. Acute GI blood loss anemia - Transfused 2 units PRBCs this admission - CBC not done this morning - Eliquis held - EGD revealed distal esophageal spasm, two small non-bleeding prepyloric ulcers - Patient has agreed to have colonoscopy tomorrow - Continue Protonix - Continue to monitor hemoglobin and for signs of bleeding 2. UTI - Urine culture growing yeast-like organism - Treated with Rocephin x 3 days 3. Constipation with fecal impaction - s/p manual disimpaction 4. Atrial fibrillation, permanent - Continue Lopressor, Cardizem CD, Digoxin - Eliquis held secondary to GI bleed 5 Chronic diastolic heart failure - Stable 6. Hyperthyroidism - Continue Tapazole 7. Type 2 DM - Continue Levemir, Novolog sliding scale 8. Anxiety - Continue Celexa, Xanax as needed 9. HTN - Continue Lopressor, Cardizem CD 10. Hyperlipidemia 11. GERD - Continue Protonix 12. COPD - Stable - Continue Symbicort, DuoNeb as needed 13. Seizure disorder - Continue Kera Visit type - Emergency Visit Emergency Visit: Yes ED Registration Date: 04/19/18 Care time: The patient presented to the Emergency Department on the above date and was hospitalized for further evaluation of their emergent condition. - New Patient This patient is new to me today: No - Critical Care Critical Care patient: No - Discharge Referral Referred to [facility] No
[2018-04-23] MEDS: MINERAL OIL ENEMA 133 ML ENEMA PR SCH (11:38)
[2018-04-23] MEDS: PANTOPRAZOLE 40 MG TABLET (FP) PO SCH (11:50)
[2018-04-23] MEDS: levETIRAcetam 250 MG TABLET (FP) PO SCH ×2 (11:50→21:42)
[2018-04-23] MEDS: DIGOXIN 0.125 MG TABLET (FP) PO SCH (11:50)
[2018-04-23] MEDS: METHIMAZOLE 5 MG TABLET (FP) PO SCH (11:51)
[2018-04-23] MEDS: BUDESONIDE/FORMETEROL FUMARATE 80/4.5 mcg INHALER IH SCH ×2 (11:51→21:42)
[2018-04-23] MEDS: CITALOPRAM HYDROBROMIDE 10 MG TABLET (FP) PO SCH (11:52)
[2018-04-23] MEDS: LACTOBACILLUS ACIDOPHILUS 1 TABLET PO SCH (11:52)
[2018-04-23] MEDS ORDERED: BISACODYL 5 MG TABLET.DR (FP) PO ONE (12:00)
[2018-04-23] MEDS: METOPROLOL TARTRATE 25 MG TABLET (FP) PO SCH ×2 (14:54→21:42)
[2018-04-23] MEDS: ACETAMINOPHEN 325 MG TABLET (FP) PO PRN (14:54)
[2018-04-23] MEDS ORDERED: PEG3350/SOD SULF,BICARB,CL/KCL 4,000 ML SOLN.RECON PO ONE (15:00)
[2018-04-23] MEDS ORDERED: INSULIN (NOVOLOG) ASPART 100 UNITS/ML 10ML VIAL ONE (16:37)
[2018-04-23] MEDS ORDERED: PT OWN MED DRAWER 7, Y5N ONE (21:39)
[2018-04-23] MEDS: ALPRAZolam 0.25 MG TABLET PO PRN (21:41)
[2018-04-23] MEDS: INSULIN (LEVEMIR) 100 UNITS/ML UNITS SQ SCH (21:42)
[2018-04-24] MEDS: METOPROLOL TARTRATE 25 MG TABLET (FP) PO SCH ×4 (06:28→21:49)
[2018-04-24] MEDS: INSULIN SLIDING SCALE (NOVOLOG) 1 VIAL SQ SCH ×3 (06:32→16:40)
[2018-04-24] MEDS ORDERED: PT OWN MED DRAWER 7, Y5N ONE ×3 (06:49→21:46)
[2018-04-24] MEDS: ALBUTEROL SO4 2.5/IPRATROPIUM 0.5 INH SOL 3 ML VIAL.NEB. NEB SCH ×4 (07:24→20:26)
[2018-04-24 08:15] LABS: HEMATOCRIT 29.1 % (32.4-45.2); HEMOGLOBIN 9.6 GM/dL (10.7-15.3); MCH 30.5 pg (25.7-33.7); MEAN CELL VOLUME 92.4 fl (80-96); MEAN PLT VOLUME 6.6 fl (7.5-11.1); PLATELET COUNT 328 K/MM3 (134-434); RBC 3.15 M/mm3 (3.60-5.2); RDW 14.6 % (11.6-15.6); WHITE BLOOD COUNT 5.9 K/mm3 (4.0-10.0)
[2018-04-24 08:40] LABS: ANION GAP 6 (8-16); BLOOD UREA NITROGEN 21 mg/dL (7-18); CALCIUM 7.9 mg/dL (8.5-10.1); CHLORIDE 97 mmol/L (98-107); CO2 35 mmol/L (21-32); CREATININE 0.8 mg/dL (0.55-1.02); GLUCOSE,RANDOM 100 mg/dL (74-106); POTASSIUM 4.1 mmol/L (3.5-5.1); SODIUM 138 mmol/L (136-145)
--- NOTE | 2018-04-24 10:18 | PN ---
Progress Note, Physician Chief Complaint: Pt lying in bed in no acute distress.colonoscopy today. Otherwise, denies any melena, chest pain, sob, n/v/d - Current Medication List Current Medications: Active Medications Acetaminophen (Tylenol -) 650 mg PO Q6H PRN PRN Reason: PAIN LEVEL 4 - 6 Last Admin: 04/23/18 14:54 Dose: 650 mg Albuterol/Ipratropium (Duoneb -) 1 amp NEB RQID [facility] Last Admin: 04/23/18 20:13 Dose: 1 amp Budesonide/Formoterol Fumarate (Symbicort 80/4.5mcg -) 2 puff IH BID [facility] Last Admin: 04/23/18 21:42 Dose: 2 puff Citalopram Hydrobromide (Celexa -) 10 mg PO DAILY [facility] Last Admin: 04/23/18 11:52 Dose: 10 mg Digoxin (Lanoxin -) 0.125 mg PO DAILY [facility] Last Admin: 04/23/18 11:50 Dose: 0.125 mg Diltiazem HCl (Cardizem Cd -) 180 mg PO BID [facility] Last Admin: 04/23/18 21:41 Dose: 180 mg Insulin Aspart (Novolog Vial Sliding Scale -) 1 vial SQ TIDAC [facility]; Protocol Last Admin: 04/24/18 06:32 Dose: Not Given Insulin Detemir (Levemir Vial) 5 units SQ HS [facility] Last Admin: 04/23/18 21:42 Dose: 5 units Lactobacillus Acidophilus (Bacid -) 1 tab PO DAILY [facility] Last Admin: 04/23/18 11:52 Dose: 1 tab Levetiracetam (Keppra -) 250 mg PO BID [facility] Last Admin: 04/23/18 21:42 Dose: 250 mg Methimazole (Tapazole -) 2.5 mg PO DAILY [facility] Last Admin: 04/23/18 11:51 Dose: 2.5 mg Metoprolol Tartrate (Lopressor -) 25 mg PO TID [facility] Last Admin: 04/24/18 06:28 Dose: 25 mg Pantoprazole Sodium (Protonix -) 40 mg PO DAILY [facility] Last Admin: 04/23/18 11:50 Dose: 40 mg - Objective Vital Signs: Vital Signs Temperature 97.9 F 04/24/18 05:29 Pulse Rate 84 04/24/18 05:29 Respiratory Rate 18 06/25/18 05:29 Blood Pressure 138/80 04/24/18 05:29 O2 Sat by Pulse Oximetry (%) 98 04/23/18 21:00 Constitutional: Yes: Well Nourished, No Distress, Calm Cardiovascular: Yes: Pulse Irregular, Murmur Respiratory: Yes: WNL, Regular, CTA Bilaterally. No: Accessory Muscle Use, SOB , Tachypnea, Wheezes Gastrointestinal: Yes: WNL, Normal Bowel Sounds, Soft, Abdomen, Obese. No: Distention, Tenderness Genitourinary: Yes: WNL Edema: No Integumentary: Yes: Venous Stasis Changes (B/L lower extremities) Neurological: Yes: WNL, Alert, Oriented Psychiatric: Yes: WNL, Alert, Oriented Labs: CBC, BMP 04/24/18 07:01 04/24/18 07:01 INR, PTT INR 1.27 (0.82-1.09) H 04/21/18 05:30 Problem List - Problems (1) Acute blood loss anemia Code(s): D62 - ACUTE POSTHEMORRHAGIC ANEMIA (2) GI bleed Code(s): K92.2 - GASTROINTESTINAL HEMORRHAGE, UNSPECIFIED Qualifiers: GI bleed type/associated pathology: melena Qualified Code(s): K92.1 - Melena (3) UTI (urinary tract infection) Code(s): N39.0 - URINARY TRACT INFECTION, SITE NOT SPECIFIED Qualifiers: Urinary tract infection type: acute cystitis Hematuria presence: without hematuria Qualified Code(s): N30.00 - Acute cystitis without hematuria (4) Atrial fibrillation Code(s): I48.91 - UNSPECIFIED ATRIAL FIBRILLATION Qualifiers: Atrial fibrillation type: chronic Qualified Code(s): I48.2 - Chronic atrial fibrillation (5) CHF (congestive heart failure) Code(s): I50.9 - HEART FAILURE, UNSPECIFIED (6) Hyperthyroidism Code(s): E05.90 - THYROTOXICOSIS, UNSP WITHOUT THYROTOXIC CRISIS OR STORM (7) Diabetes Code(s): E11.9 - TYPE 2 DIABETES MELLITUS WITHOUT COMPLICATIONS Qualifiers: Diabetes mellitus type: type 2 Diabetes mellitus superintendent container terminal insulin use: with fdc use Diabetes mellitus complication status: with neurologic complications Diabetes mellitus complication detail: with polyneuropathy Qualified Code(s): E11.42 - Type 2 diabetes mellitus with diabetic polyneuropathy; Z79.4 - ocean transportation intermediary (current) use of insulin (8) Anxiety Code(s): F41.9 - ANXIETY DISORDER, UNSPECIFIED (9) HTN (hypertension) Code(s): I10 - ESSENTIAL (PRIMARY) HYPERTENSION Qualifiers: Hypertension type: essential hypertension Qualified Code(s): I10 - Essential (primary) hypertension (10) Hyperlipidemia Code(s): E78.5 - HYPERLIPIDEMIA, UNSPECIFIED (11) GERD (gastroesophageal reflux disease) Code(s): K21.9 - GASTRO-ESOPHAGEAL REFLUX DISEASE WITHOUT ESOPHAGITIS (12) COPD (chronic obstructive pulmonary disease) Code(s): J44.9 - CHRONIC OBSTRUCTIVE PULMONARY DISEASE, UNSPECIFIED (13) History of seizure Code(s): Z87.898 - PERSONAL HISTORY OF OTHER SPECIFIED CONDITIONS (14) Fecal impaction Code(s): K56.41 - FECAL IMPACTION Assessment/Plan (1) Acute blood loss anemia Assessment/Plan: improved, acute on chronic h/h stable s/p 2units prbcs monitor h/h Code(s): D62 - ACUTE POSTHEMORRHAGIC ANEMIA (2) GI bleed Assessment/Plan: EGD revealed distal esophageal spasm, two small non-bleeding prepyloric ulcers Colonoscopy- revealed polyps,removed, otherwise normal protonix 40mg daily x 8 weeks per gi hold eliquis for 3 more days then resume GI following Code(s): K92.2 - GASTROINTESTINAL HEMORRHAGE, UNSPECIFIED Qualifiers: GI bleed type/associated pathology: melena Qualified Code(s): K92.1 - Melena (3) UTI (urinary tract infection) Assessment/Plan: UA+, UC yeast growth ceftriaxone 3 days completed Code(s): N39.0 - URINARY TRACT INFECTION, SITE NOT SPECIFIED Qualifiers: Urinary tract infection type: acute cystitis Hematuria presence: without hematuria Qualified Code(s): N30.00 - Acute cystitis without hematuria (4) Fecal impaction Assessment/Plan: disimpacted by GI miralax/senna Code(s): K56.41 - FECAL IMPACTION (5) Atrial fibrillation Assessment/Plan: chronic on eliquis/metoprolol/cardizem hold eliquis x 3 more days per gi chads(2) score 4: 8.5% risk of stroke without ac cardiology following Code(s): I48.91 - UNSPECIFIED ATRIAL FIBRILLATION Qualifiers: Atrial fibrillation type: chronic Qualified Code(s): I48.2 - Chronic atrial fibrillation (6) CHF (congestive heart failure) Assessment/Plan: chronic, diastolic last echo 2016, preserved ef appear euvolemic cardiology following Code(s): I50.9 - HEART FAILURE, UNSPECIFIED (7) Hyperthyroidism Assessment/Plan: tsh wnl continue tapazole Code(s): E05.90 - THYROTOXICOSIS, UNSP WITHOUT THYROTOXIC CRISIS OR STORM (8) Diabetes Assessment/Plan: chronic continue sliding scale levemir hs bgm will monitor Code(s): E11.9 - TYPE 2 DIABETES MELLITUS WITHOUT COMPLICATIONS Qualifiers: Diabetes mellitus type: type 2 Diabetes mellitus superintendent container terminal insulin use: with superintendent container terminal use Diabetes mellitus complication status: with neurologic complications Diabetes mellitus complication detail: with polyneuropathy Qualified Code(s): E11.42 - Type 2 diabetes mellitus with diabetic polyneuropathy; Z79.4 - ocean transportation intermediary (current) use of insulin (9) Anxiety Assessment/Plan: controlled xanax prn Code(s): F41.9 - ANXIETY DISORDER, UNSPECIFIED (10) HTN (hypertension) Assessment/Plan: controlled continue home meds cardiology following Code(s): I10 - ESSENTIAL (PRIMARY) HYPERTENSION Qualifiers: Hypertension type: essential hypertension Qualified Code(s): I10 - Essential (primary) hypertension (11) Hyperlipidemia Assessment/Plan: chronic continue statin Code(s): E78.5 - HYPERLIPIDEMIA, UNSPECIFIED (12) GERD (gastroesophageal reflux disease) Assessment/Plan: chronic protonix Code(s): K21.9 - GASTRO-ESOPHAGEAL REFLUX DISEASE WITHOUT ESOPHAGITIS (13) COPD (chronic obstructive pulmonary disease) Assessment/Plan: stable O2 prn duoneb Code(s): J44.9 - CHRONIC OBSTRUCTIVE PULMONARY DISEASE, UNSPECIFIED (14) History of seizure Assessment/Plan: chronic continue keppra seizure precautions Code(s): Z87.898 - PERSONAL HISTORY OF OTHER SPECIFIED CONDITIONS Assessment/Plan completed colonoscopy today. monitor h/h Dispo: SNF tmrw if medically stable
[2018-04-24] MEDS ORDERED: PROPOFOL 20 ML ONE ×5 (11:13)
--- NOTE | 2018-04-24 12:46 | PROC ---
Endoscopy Procedure Endoscopy procedure completed. Please see scanned procedure report. multiple polyps were found and removed, otherwise normal colonoscopy
[2018-04-24] MEDS: BUDESONIDE/FORMETEROL FUMARATE 80/4.5 mcg INHALER IH SCH ×2 (13:43→21:48)
[2018-04-24] MEDS: METHIMAZOLE 5 MG TABLET (FP) PO SCH (13:44)
[2018-04-24] MEDS: levETIRAcetam 250 MG TABLET (FP) PO SCH ×2 (13:44→21:49)
[2018-04-24] MEDS: DIGOXIN 0.125 MG TABLET (FP) PO SCH (13:44)
[2018-04-24] MEDS: LACTOBACILLUS ACIDOPHILUS 1 TABLET PO SCH (13:44)
[2018-04-24] MEDS: CITALOPRAM HYDROBROMIDE 10 MG TABLET (FP) PO SCH (13:44)
[2018-04-24] MEDS: PANTOPRAZOLE 40 MG TABLET (FP) PO SCH (13:44)
[2018-04-24 15:03] LABS: BASO % 0.3 % (0-2.0); EOS % 2.6 % (0-4.5); HEMATOCRIT 26.1 % (32.4-45.2); HEMOGLOBIN 8.3 GM/dL (10.7-15.3); MCH 30.5 pg (25.7-33.7); MCHC 31.9 g/dl (32.0-36.0); MEAN CELL VOLUME 95.5 fl (80-96); MEAN PLT VOLUME 6.3 fl (7.5-11.1); MONO % 8.4 % (3.8-10.2); NEUT % 81.7 % (42.8-82.8); PLATELET COUNT 289 K/MM3 (134-434); RBC 2.73 M/mm3 (3.60-5.2); RDW 15.4 % (11.6-15.6); WHITE BLOOD COUNT 4.6 K/mm3 (4.0-10.0)
[2018-04-24] MEDS: ACETAMINOPHEN 325 MG TABLET (FP) PO PRN (21:48)
[2018-04-24] MEDS: INSULIN (LEVEMIR) 100 UNITS/ML UNITS SQ SCH (21:49)
[2018-04-25] MEDS: METOPROLOL TARTRATE 25 MG TABLET (FP) PO SCH (06:21)
[2018-04-25] MEDS: INSULIN SLIDING SCALE (NOVOLOG) 1 VIAL SQ SCH ×2 (06:21→10:51)
[2018-04-25 08:29] LABS: BASO % 0.6 % (0-2.0); EOS % 2.5 % (0-4.5); HEMATOCRIT 28.7 % (32.4-45.2); HEMOGLOBIN 9.4 GM/dL (10.7-15.3); LYMPH % 6.6 % (8-40); MCH 30.4 pg (25.7-33.7); MCHC 32.9 g/dl (32.0-36.0); MEAN CELL VOLUME 92.4 fl (80-96); MEAN PLT VOLUME 6.4 fl (7.5-11.1); NEUT % 82.3 % (42.8-82.8); PLATELET COUNT 324 K/MM3 (134-434); RDW 14.5 % (11.6-15.6); WHITE BLOOD COUNT 7.1 K/mm3 (4.0-10.0)
[2018-04-25 08:59] LABS: ANION GAP 5 (8-16); BLOOD UREA NITROGEN 23 mg/dL (7-18); CALCIUM 8.1 mg/dL (8.5-10.1); CHLORIDE 100 mmol/L (98-107); CO2 35 mmol/L (21-32); CREATININE 1.1 mg/dL (0.55-1.02); GLUCOSE,RANDOM 113 mg/dL (74-106); POTASSIUM 4.4 mmol/L (3.5-5.1); SODIUM 140 mmol/L (136-145)
[2018-04-25] MEDS ORDERED: SODIUM CHLORIDE 500 ML IV STA (09:02)
[2018-04-25] MEDS ORDERED: PT OWN MED DRAWER 7, Y5N ONE (09:10)
[2018-04-25] MEDS: DIGOXIN 0.125 MG TABLET (FP) PO SCH (09:12)
[2018-04-25] MEDS: CITALOPRAM HYDROBROMIDE 10 MG TABLET (FP) PO SCH (09:12)
[2018-04-25] MEDS: LACTOBACILLUS ACIDOPHILUS 1 TABLET PO SCH (09:12)
[2018-04-25] MEDS: BUDESONIDE/FORMETEROL FUMARATE 80/4.5 mcg INHALER IH SCH (09:12)
[2018-04-25] MEDS: PANTOPRAZOLE 40 MG TABLET (FP) PO SCH (09:12)
[2018-04-25] MEDS: METHIMAZOLE 5 MG TABLET (FP) PO SCH (09:12)
[2018-04-25] MEDS: levETIRAcetam 250 MG TABLET (FP) PO SCH (09:12)
[2018-04-25 09:13] VITALS: PULSE 74
--- NOTE | 2018-04-25 09:55 | DS ---
Physical Examination Vital Signs: Vital Signs Temperature 97.8 F 04/25/18 06:13 Pulse Rate 74 04/25/18 09:12 Respiratory Rate 20 04/25/18 06:13 Blood Pressure 110/65 04/25/18 06:13 O2 Sat by Pulse Oximetry (%) 100 04/24/18 21:00 Constitutional: Yes: Well Nourished, No Distress, Calm Cardiovascular: Yes: Pulse Irregular, Murmur Respiratory: Yes: WNL, Regular, CTA Bilaterally. No: Accessory Muscle Use, SOB , Tachypnea, Wheezes Gastrointestinal: Yes: WNL, Normal Bowel Sounds, Soft. No: Distention, Tenderness Renal/: Yes: WNL Edema: No Integumentary: Yes: Venous Stasis Changes (b/l les) Neurological: Yes: Alert, Oriented Psychiatric: Yes: WNL, Alert, Oriented Labs: CBC, BMP 04/25/18 07:45 04/25/18 07:45 Discharge Summary Reason For Visit: GASTROINTESTINAL HEMORRHAGE Current Active Problems GI bleed (Acute) Anxiety (Acute) HTN (hypertension) (Acute) Hyperlipidemia (Acute) UTI (urinary tract infection) (Acute) GERD (gastroesophageal reflux disease) (Acute) COPD (chronic obstructive pulmonary disease) (Acute) History of seizure (Acute) Anemia (Acute) Constipation (Acute) Fecal impaction (Acute) Hospital Course: is a 77 year old female who was brought in from SNF for acute anemia/ melena. Pt found to have low Hg/hct s/p 2units prbcs transfusion. Heme-occult positive.GI was consulted.EGD revealed distal esophageal spasm, two small non- bleeding prepyloric ulcers Colonoscopy- revealed polyps,removed, otherwise normal protonix 40mg daily x 8 weeks per gi hold eliquis for 3 more days then resume. Plan of care/goals discussed with pt and HCP Ze. Pt is medically stable for discharge. H/H stable. vitals stable. No further issues. Condition: Fair - Instructions Diet, Activity, Other Instructions: HOLD ELIQUIS FOR 3 DAYS RESUME PREV ACTIVITY/DIET PPI X 8 WEEKS Pt had fecal impaction upon admission.A rectal exam to exclude evolving rectal fecal impaction at the retirement intermittently could be useful MiraLax 17g twice daily Senokot 2 tabs nightly Referrals: Kel Lewis MD [Staff Physician] - 1 Week Disposition: ASSISTED FACILITY - Home Medications Comprehensive Discharge Medication List: Ambulatory Orders Albuterol 2.5/Ipratropium 0.5 [Duoneb -] 1 neb IH QID 09/19/16 Alprazolam [Xanax] 0.25 mg PO HS 09/19/16 Apixaban [Eliquis -] 5 mg PO BID 09/19/16 Citalopram Hydrobromide [Celexa -] 10 mg PO DAILY 09/19/16 Digoxin [Lanoxin -] 0.125 mg PO DAILY 09/19/16 Diltiazem Cd [Cardizem Cd -] 180 mg PO BID 09/19/16 Docusate Sodium [Colace -] 300 mg PO HS 09/19/16 Famotidine [Pepcid] 20 mg PO DAILY 09/19/16 Insulin Glargine,Hum.rec.anlog [Lantus Solostar PEN -] 5 units SQ HS 09/19/16 Lactobacillus Acidophilus [Acidophilus] 2 each PO TID 09/19/16 Methimazole [Tapazole] 2.5 mg PO DAILY 09/19/16 Sennosides [Senna] 2 tab PO DAILY 09/19/16 Simethicone [Gas-X] 80 mg PO QID PRN 09/19/16 Vit B Comp No.3/Folic/C/Biotin [Nephro-Joyce Rx Tablet] 1 each PO DAILY 09/19/16 levETIRAcetam [Keppra -] 250 mg PO BID 09/19/16 Anastrozole [Arimidex -] 1 mg PO DAILY 04/19/18 Ascorbate Calcium [Vitamin C] 500 mg PO DAILY 04/19/18 Atorvastatin Ca [Lipitor] 10 mg PO HS 04/19/18 Ferrous Sulfate 325 mg PO TID 04/19/18 Melatonin 5 mg PO HS 04/19/18 Metoprolol Tartrate 25 mg PO TID 04/19/18 Polyethylene Glycol 3350 [Miralax 255 gm Btl -] 17 gm PO DAILY 04/19/18 Budesonide/Formeterol Fumarate [SYMBICORT 80/4.5mcg -] 2 puff IH BID inhaler Insulin (Levemir) [Levemir Vial] 5 units SQ HS units 04/24/18 Insulin Sliding Scale [Novolog Vial Sliding Scale -] 1 vial SQ TIDAC units Mineral Oil Enema [Fleet Mineral Oil Rectal Enema -] 133 ml LA DAILY enema Pantoprazole Sodium [Protonix -] 40 mg PO DAILY 60 Days tablet.ec 04/24/18
[2018-04-25] MEDS ORDERED: INSULIN (NOVOLOG) ASPART 100 UNITS/ML 10ML VIAL ONE (10:46)
[2018-04-25 11:48] VITALS: BP 130/76; TEMP 98.8
[2018-04-25] MEDS: ACETAMINOPHEN 325 MG TABLET (FP) PO PRN (12:18)
--- NOTE | 2018-04-25 15:59 | PATH ---
Surgical Pathology Report Patient Name: RISHI BRONW [facility]. Rec. #: [id number] /Age/Gender: 1940 (Age: 77) / F Account: [id number] Location: [address] [place] [address] Taken: 04/21/2018 Received: 04/24/2018 Reported: 04/25/2018 Physicians: Shilo Ruggiero M.D. Specimen(s) Received A: BX POLYP DUODENUM B: BX ANGULARIS AND BODY C: BX ANTRAL ULCERS Clinical History Anemia, GI bleeding Postoperative diagnosis: Gastric ulcer, gastritis, duodenal polyp Final Diagnosis A. POLYP DUODENUM, BIOPSY: DUODENAL MUCOSA WITH HETEROTOPIC GASTRIC MUCOSA AND MILD CHRONIC INFLAMMATION. B. ANGULARIS AND BODY, BIOPSY: GASTRIC MUCOSA WITH MILD CHRONIC GASTRITIS. IMMUNOSTAIN IS NEGATIVE FOR H. PYLORI ORGANISMS. C. ANTRAL ULCERS, BIOPSY: GASTRIC MUCOSA WITH MILD CHRONIC GASTRITIS. IMMUNOSTAIN IS NEGATIVE FOR H. PYLORI ORGANISMS. Electronically Signed Benjamin Muñoz M.D. Gross Description A. Received in formalin, labeled "duodenal polyp" are 4 romero, irregular portions of soft tissue ranging from 0.2-0.4 cm. in greatest dimension. The specimens are submitted in toto in one cassette. B. Received in formalin, labeled "angularis/body" are 2 romero, irregular portions of soft tissue measuring 0.2 and 0.5 cm. in greatest dimension. The specimens are submitted in toto in one cassette. C. Received in formalin, labeled "antral ulcers" are 2 romero, irregular portions of soft tissue measuring 0.2 and 0.3 cm. in greatest dimension. The specimens are submitted in toto in one cassette. /04/24/2018 saudi04/24/2018
--- NOTE | 2018-04-25 17:13 | PATH ---
Surgical Pathology Report Patient Name: RISHI BROWN [facility]. Rec. #: [id number] /Age/Gender: 1940 (Age: 77) / F Account: [id number] Location: [address] [place] [address] Taken: 04/24/2018 Received: 04/24/2018 Reported: 04/25/2018 Physicians: Cristian Quintero M.D. Specimen(s) Received A: ASCENDING COLON POLYP #1 B: BX TRANSVERSE COLON POLYP C: ASCENDING COLON POLYP #2 D: BX DESCENDING COLON POLYP Clinical History GI bleed Postoperative diagnosis: Polyps Final Diagnosis A. ASCENDING COLON POLYP #1, POLYPECTOMY: TUBULAR ADENOMA. B. TRANSVERSE COLON POLYP, POLYPECTOMY: TUBULAR ADENOMA. C. ASCENDING COLON POLYP #2, POLYPECTOMY: TUBULAR ADENOMA. D. DESCENDING COLON POLYP, POLYPECTOMY: TUBULAR ADENOMA. Electronically Signed Benjamin Muñoz M.D. Gross Description A. Received in formalin, labeled "ascending colon polyp #1" are 3 romero, irregular to polypoid portions of soft tissue ranging from 0.3-0.8 cm. in greatest dimension. The specimens are submitted in toto in one cassette. B. Received in formalin, labeled "biopsy transverse colon polyp" are 4 romero, irregular portions of soft tissue ranging from 0.1-0.4 cm. in greatest dimension. The specimens are submitted in toto in one cassette. C. Received in formalin, labeled "biopsy ascending colon polyp #2" are 3 romero, irregular portions of soft tissue ranging from 0.1-0.2 cm. in greatest dimension. The specimens are submitted in toto in one cassette. D. Received in formalin, labeled "descending colon polyp" are 2 romero, irregular portions of soft tissue measuring 0.4 and 0.5 cm. in greatest dimension. The specimens are submitted in toto in one cassette. 04/24/201804/24/2018
== END 2018-04-25 14:51 | DRG 378 ==
LOC: JER 15:43 → JERBED 18:16 → J4W 21:09 → JSAMEDAYSX 04-21 16:03 → J6S 04-21 17:06
PROVIDERS: ADMIT Internal Medicine; ATTEND Internal Medicine
PROC: 30233N1 Transfusion of Nonautologous Red Blood Cells into Peripheral Vein, Percutaneous Approach (ICD-10-PCS; 2018-04-19)
PROC: 0DD98ZX Extraction of Duodenum, Via Natural or Artificial Opening Endoscopic, Diagnostic (ICD-10-PCS; 2018-04-21)
PROC: 0DD68ZX Extraction of Stomach, Via Natural or Artificial Opening Endoscopic, Diagnostic (ICD-10-PCS; 2018-04-21)
PROC: 0DBL8ZX Excision of Transverse Colon, Via Natural or Artificial Opening Endoscopic, Diagnostic (ICD-10-PCS; 2018-04-24)
PROC: 0DBM8ZX Excision of Descending Colon, Via Natural or Artificial Opening Endoscopic, Diagnostic (ICD-10-PCS; 2018-04-24)
PROC: 0DBK8ZX Excision of Ascending Colon, Via Natural or Artificial Opening Endoscopic, Diagnostic (ICD-10-PCS; principal; 2018-04-24 12:15)
DX: K92.2 Gastrointestinal hemorrhage, unspecified (principal); D62 Acute posthemorrhagic anemia; N39.0 Urinary tract infection, site not specified; I50.30 Unspecified diastolic (congestive) heart failure; K59.00 Constipation, unspecified; E11.9 Type 2 diabetes mellitus without complications; K56.41 Fecal impaction; K63.5 Polyp of colon; K25.9 Gastric ulcer, unspecified as acute or chronic, without hemorrhage or perforation; K29.50 Unspecified chronic gastritis without bleeding; I48.2 Chronic atrial fibrillation; E05.90 Thyrotoxicosis, unspecified without thyrotoxic crisis or storm; F41.9 Anxiety disorder, unspecified; J44.9 Chronic obstructive pulmonary disease, unspecified; G40.909 Epilepsy, unspecified, not intractable, without status epilepticus; I11.0 Hypertensive heart disease with heart failure; E78.5 Hyperlipidemia, unspecified; K21.9 Gastro-esophageal reflux disease without esophagitis
CPT/HCPCS: 36415; 36430; 71045-TC-FY; 80048; 80053; 80162; 81003; 81015; 82272; 82550; 82962; 83605; 83690; 83735; 83880; 84100; 84443; 84484; 85025; 85027; 85610; 85730; 86850; 86900; 86901; 86922; 87077; 87086; 88305-TC; 93005; 93010; 94640; 99284-25; J0131; J7030; J7620; P9038; P9058